=== PATIENT | male | born 1970 | race African-American/Black ===

== ENCOUNTER → 2018-08-25 | Outpatient (CLI) | payer OTHER ==
[2016-09-26 01:41] VITALS: BP 150/89
[~2018-08-25] MED LIST: CYCL10TA2 PO; NAPR-695 PO
--- NOTE | 2018-08-25 17:43 | KCIC ---
EXAM: LUMBAR SPINE MIN 4V. HISTORY: Left low back pain. Fall, muscle spasms. COMPARISON: None. FINDINGS: Alignment is normal. No fractures are identified. Intervertebral disc heights are maintained. There are mild aortoiliac atherosclerotic calcifications. IMPRESSION: 1. No fracture or malalignment. Electronically signed by: Johan Shaikh MD (08/25/2018 5:40 PM) [facility]
== END | disposition home or self-care (01) ==
LOC: KCIC 12:28
PROVIDERS: ATTEND Physician Assistant Medical
DX: M54.5 Low back pain (principal); I70.0 Atherosclerosis of aorta
CPT/HCPCS: 72110

== ENCOUNTER → 2018-09-29 | Outpatient (CLI) | payer OTHER ==
[2016-09-26 01:41] VITALS: BP 150/89
--- NOTE | 2018-09-29 20:34 | RAD ---
Limited left groin ultrasound dated 09/29/2018. No comparison available. Clinical data indication: Palpable lump. Evaluate for hernia. Findings Limited evaluation of the greater saphenous vein and left common femoral vein and superficial femoral artery show patent flow. There are multiple enlarged lymph nodes at the left groin, largest of which measures about 10 mm short axis. At the area of palpable abnormality in the proximal medial thigh, there is a small complex hypoechoic nodule that measures 1.6 x 1.3 x 1.7 cm. No internal vascularity. IMPRESSION: 1. Enlarged lymph nodes at the left groin, nonspecific. Consider infectious, inflammatory or neoplastic etiology. 2. There is an additional complex cystic nodule at the proximal medial thigh that correlates with the palpable lump. This is indeterminate could represent a liquefying hematoma or necrotic lymph node or other cystic mass. Correlate clinically. Electronically signed by: Caden Varela MD (09/29/2018 8:30 PM) [facility]
== END | disposition home or self-care (01) ==
LOC: US 17:07
PROVIDERS: ATTEND Family Medicine
DX: R19.09 Other intra-abdominal and pelvic swelling, mass and lump (principal); R22.42 Localized swelling, mass and lump, left lower limb
CPT/HCPCS: 76881

== ENCOUNTER 2021-01-15 04:07 | Observation (INO) | payer OTHER ==
[~2021-01-15] VITALS: Ht 180.3 cm; Wt 100.6 kg
[~2021-01-15 04:07] MED LIST changes: +AMLO-186 PO; +ASPI-886 PO; +ATOR20TA58 PO; +CLOP75TA PO; +GABA300C18 PO; +HYDR-2765 PO; +INSU100V8 SQ; +LISI-130 PO; +METF500T16 PO
--- NOTE | 2021-01-15 04:44 | PHYS DOC ---
Past Medical History Past Medical History: Diabetes-Type II, Hypertension Past Surgical History: No Surgical History Smoking Status: Current Some Day Smoker Alcohol Use: Occasionally Drug Use: Marijuana General Adult EDM: Chief Complaint: HEARTBURN/GI DISTRESS HPI: HPI: Patient is a 50 year old male with a PMH of HTN and diabetes presents today for epigastric pain. He states that on Saturday he was started on Eravacycline through a PICC line to prevent the infection in his left toe from progressing. He states that he had no problems until yesterday when he started sweating excessively, getting chills intermittently, became nauseous, and started having diarrhea. He states he did not take his temperature but felt hot and cold on and off. He states he has had 5x diarrhea a day, states they are green, denies blood or dark black stool. He states that with this he is having a sensation of "hot lava in the middle of his chest". He states this sensation is worse when he lays flat. Nothing makes this sensation go away, denies radiation. He states he feels like this sensation would be better if he could vomit but he has just retched a few times. He denies headache, nasal congestion, sore throat, cough, chest pain, shortness of breath, abdominal pain, numbness or tingling, and weakness. Review of Systems: Review of Systems: Constitutional: Positive subjective fever and chills. [] Eyes: Denies change in visual acuity. [] HENT: Denies nasal congestion or sore throat. [] Respiratory: Denies cough or shortness of breath. [] Cardiovascular: Denies chest pain or edema. [] GI: Positive nausea and diarrhea Denies abdominal pain, vomiting, bloody stools [] : Denies dysuria. [] Musculoskeletal: Denies back pain or joint pain. [] Integument: Denies rash. [] Neurologic: Denies headache, focal weakness or sensory changes. [] Endocrine: Denies polyuria or polydipsia. [] Lymphatic: Denies swollen glands. [] Psychiatric: Denies depression or anxiety. [] Heart Score: HEART Score for Chest Pain: HEART Score for Chest Pain Response (Comments) Value History Moderately Suspicious 1 Age >45 - < 65 1 Risk Factors 1 or 2 Risk Factors 1 Troponin < Normal Limit 0 Total 3 Risk Factors: Risk Factors: DM, Current or recent (<one month) smoker, HTN, HLP, family history of CAD, obesity. Risk Scores: Score 0 - 3: 2.5% MACE over next 6 weeks - Discharge Home Score 4 - 6: 20.3% MACE over next 6 weeks - Admit for Clinical Observation Score 7 - 10: 72.7% MACE over next 6 weeks - Early Invasive Strategies Allergies: Allergies: Allergies Coded Allergies Type Severity Reaction Last Updated Verified No Known Drug Allergies 09/26/16 No Physical Exam: PE: Constitutional: Well developed, well nourished, no acute distress, non-toxic appearance. [] HENT: Normocephalic, atraumatic, bilateral external ears normal, oropharynx moist, no oral exudates, nose normal. [] Eyes: PERRLA, EOMI, conjunctiva normal, no discharge. [] Neck: Normal range of motion, no tenderness, supple, no stridor. [] Cardiovascular:Heart rate regular rhythm, no murmur [] Lungs & Thorax: Expiratory wheeze bilaterally [] Abdomen: Bowel sounds normal, soft, no tenderness, no masses, no pulsatile masses. [] Skin: Warm, dry, no erythema, no rash. [] Back: No tenderness, no CVA tenderness. [] Extremities: No tenderness, no cyanosis, no clubbing, ROM intact, no edema. [] Neurologic: Alert and oriented X 3, normal motor function, normal sensory function, no focal deficits noted. [] Psychologic: Affect normal, judgement normal, mood normal. [] EKG: EKG: EKG performed at 511 heart rate [address] elevation no ST depression no acute SC [] Radiology/Procedures: Radiology/Procedures: [] Impression: FINDINGS: A frontal view of the chest is obtained. A left arm PICC line has its tip in the superior vena cava. The left hemidiaphragm is mildly elevated with mild left basilar atelectasis. There is no pneumothorax or pleural effusion. The heart is not enlarged. IMPRESSION: 1. Mild left basilar atelectasis. Electronically signed by: Johan Shaikh MD (01/15/2021 5:26 AM) [facility] Course & Med Decision Making: Course & Med Decision Making Pertinent Labs and Imaging studies reviewed. (See chart for details) [] Patient was evaluated for chief complaint. Work-up consisted of laboratory analysis radiologic imaging and EKG. Results reviewed and discussed with patient. EKG chest x-ray within normal limits. Patient was found to have a sodium of 129. His BUN was 29 creatinine 1.1. Initial treatment for patient's epigastric pain included GI cocktail. Patient initially had relief but not complete resolution of discomfort. Patient's blood pressurE was noted to be greater than 220 systolic. He was treated with 20 mg labetalol. Posttreatment blood pressure mildly improved to 210 systolic. Patient had a large episode of emesis. Nausea vomiting was treated with Zofran. Return of patients epigastric pain was treated with pepcid. Patient admitted to Dr Mitchell-- Discussed patient @ 550hrs. Repeat blood pressure 0600hrs-- 200/108. Venus Disclaimer: Venus Disclaimer: This electronic medical record was generated, in whole or in part, using a voice recognition dictation system. Departure Departure Impression: Primary Impression: Epigastric pain Additional Impressions: Nausea & vomiting Diarrhea Hypertension Disposition: 09 ADMITTED INPT THIS HOSP Condition: STABLE Referrals: YOLANDA WEBER MD (PCP) EVELIA MORELAND DO Jan 15, 2021 04:44
[2021-01-15] MEDS ORDERED: LIDO:MAALOX 1:1 20 ML SINGLE DOSE. PO PRN (05:00)
[2021-01-15] MEDS ORDERED: ONDANSETRON ODT 4 MG TAB.RAPDIS. PO ONE (05:15)
--- NOTE | 2021-01-15 05:29 | RAD ---
EXAM: CHEST ONE VIEW. HISTORY: Epigastric pain. COMPARISON: None. FINDINGS: A frontal view of the chest is obtained. A left arm PICC line has its tip in the superior v brionna cava. The left hemidiaphragm is mildly elevated with mild left basilar atelectasis. There is no pneumothora x or pleural effusion. The heart is not enlarged. IMPRESSION: 1. Mild left basilar atelectasis. Electronically signed by: Johan Shaikh MD (01/15/2021 5:26 AM) [facility]
[2021-01-15 05:30] LABS: BASO % 1 % (0-3); EOS % 0 % (0-3); HEMATOCRIT 35.5 % (39.0-53.0); HEMOGLOBIN 11.8 g/dL (13.0-17.5); LYMPH # 1.6 x10^3/uL (1.0-4.8); LYMPH % 23 % (24-48); MEAN CORPUSCULAR HEMOGLOBIN 29 pg (25-35); MEAN CORPUSCULAR HGB CONC 33 g/dL (31-37); MEAN CORPUSCULAR VOLUME 88 fL (79-100); MONO # 0.5 x10^3/uL (0.0-1.1); MONO % 7 % (0-9); NEUT # 4.8 x10^3/uL (1.8-7.7); NEUT % 70 % (31-73); PLATELET COUNT 222 x10^3/uL (140-400); RED BLOOD COUNT 4.05 x10^6/uL (4.30-5.70); RED CELL DISTRIBUTION WIDTH 14.4 % (11.5-14.5); WHITE BLOOD COUNT 6.9 x10^3/uL (4.0-11.0)
[2021-01-15] MEDS ORDERED: LABETALOL 20 MG/4 ML DISP.SYRIN. IVP ONE ×2 (05:30→06:30)
[2021-01-15 05:41] LABS: CALCIUM 9.3 mg/dL (8.5-10.1); CREATININE 1.1 mg/dL (0.7-1.3); GFR 85.1
[2021-01-15 05:47] LABS: ALBUMIN 3.4 g/dL (3.4-5.0); ALBUMIN/GLOBULIN RATIO 0.7 (1.0-1.7); TOTAL BILIRUBIN 0.4 mg/dL (0.2-1.0); TOTAL PROTEIN 8.4 g/dL (6.4-8.2)
--- NOTE | 2021-01-15 05:51 | EKG ---
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
[2021-01-15 05:54] LABS: POTASSIUM 3.9 mmol/L (3.5-5.1)
[2021-01-15] MEDS ORDERED: FAMOTIDINE 20 MG/2 ML VIAL IVP ONE (06:00)
[2021-01-15] MEDS ORDERED: ONDANSETRON PF 4 MG/2 ML VIAL. IV PRN ×2 (06:00→14:15)
[2021-01-15] MEDS ORDERED: ONDANSETRON PF 4 MG/2 ML VIAL. IVP ONE (06:00)
[2021-01-15] MEDS ORDERED: DEXTROSE 50% 25 GM / 50ML DISP.SYRIN. IV PRN (08:30)
[2021-01-15] MEDS ORDERED: amLODIPine BESYLATE 5 MG TABLET PO SCH (09:00)
[2021-01-15] MEDS: VANCOMYCIN 125 MG/2.5 ML ORAL SOLUTION. PO SCH ×5 (09:00→20:32)
[2021-01-15 09:15] VITALS: BP 176/99
--- NOTE | 2021-01-15 09:19 | PDOC ---
Provider Note Date of Service: DATE: 01/15/21 TIME: 09:18 Provider Note dictated, susp c diff, will add vanco after stool obtained, add protonix, bactroban, no antibx for now- hold lantus until glucose higher again Justifications for Admission Other Justification JO ANN HAYNES MD Jan 15, 2021 09:19
[2021-01-15] MEDS: MUPIROCIN 2 % NASAL OINTMENT 22GM TUBE. NS SCH ×2 (09:47→20:41)
[2021-01-15] MEDS: POTASSIUM CL 20MEQ D5-0.45NACL 1,000 ML IV SCH ×2 (09:51→17:18)
[2021-01-15] MEDS: PANTOPRAZOLE IV PUSH 40 MG VIAL. IVP SCH (09:52)
[2021-01-15] MEDS: GABAPENTIN 300 MG CAPSULE. PO SCH ×3 (09:57→20:35)
[2021-01-15] MEDS: ASPIRIN ENTERIC COATED 81 MG TABLET.DR. PO SCH (09:58)
[2021-01-15] MEDS: CLOPIDOGREL BISULFATE 75 MG TABLET PO SCH (09:58)
[2021-01-15] MEDS: LISINOPRIL 20 MG TABLET PO SCH (09:58)
[2021-01-15 10:48] VITALS: BP 176/98
--- NOTE | 2021-01-15 11:05 | HP ---
ADMIT DATE: 01/15/2021 CHIEF COMPLAINT: Nausea, vomiting, diarrhea ____. HISTORY OF PRESENT ILLNESS: The patient with 3-4 days of progressive nausea, vomiting, diarrhea nonbloody in nature, epigastric pain and fatigue. He is on IV antibiotics for infected left great toe, which was debrided out on plantar surface and has multiple organisms per culture. He is also having a fair amount of heartburn and does not take antacid-type medicines at home. Laboratory values in the ER were unremarkable. C. diff toxin is pending at this time. PAST HISTORY: He is a poorly controlled diabetic that recently started on Lantus and had very good blood sugars at home to ____ being low blood sugars. He also has hypertension and takes medicine for this and history of mild renal insufficiency that is improved with diabetic control. No other serious medical problems. ALLERGIES: No drug allergies are known. SOCIAL HISTORY: Nonsmoker, employed, , nondrinker. FAMILY HISTORY: Unremarkable. REVIEW OF SYSTEMS: No other complaints. OBJECTIVE: ENT: All within normal limits. NECK: No masses, nodes or bruits. LUNGS: Clear. CARDIOVASCULAR: Regular rate. No tachycardia. ABDOMEN: Soft, benign. Mildly tender in the epigastrium. No guarding or surgical findings. EXTREMITIES: The plantar base of the left great toe shows surgical debridement with excellent clean-looking base, no bone extruding, no purulence is obtained. Pulses are diminished in the foot, but are present, whereas they were absent before. NEUROLOGIC: Physiologic. ASSESSMENT: Abdominal pain, nausea, vomiting, diarrhea and heartburn. Suspect Clostridium difficile colitis as a likely possibility. Certainly could have some acid reflux as well. Insulin-induced hypoglycemia regarding his new use of Lantus. PLAN: As ordered. JO ANN HAYNES MD DR: SHIRIN/chika JOB#: [id number] / [id number]
[2021-01-15] MEDS: INSULIN LISPRO 300 UNITS/3 ML VIAL. SQ SCH ×2 (11:32→16:44)
[2021-01-15] MEDS ORDERED: CALCIUM CARBONATE 500 MG TAB.CHEW PO PRN (14:15)
[2021-01-15] MEDS: amLODIPine BESYLATE 5 MG TABLET PO ONE ×2 (14:30→14:33)
[2021-01-15] MEDS: MORPHINE SULFATE 4 MG/ML VIAL. IV PRN ×2 (14:33→23:24)
[2021-01-15 14:50] VITALS: BP 182/106
[2021-01-15 19:00] VITALS: BP 157/87
--- NOTE | 2021-01-15 20:33 | NUR ---
2100 dose PO Vanco non-administered because stool specimen has not been obtained yet.
[2021-01-15] MEDS ORDERED: INSULIN GLARGINE SYRINGE. SQ SCH (21:00)
[2021-01-15 23:09] VITALS: BP 142/75
[2021-01-16] MEDS: POTASSIUM CL 20MEQ D5-0.45NACL 1,000 ML IV SCH ×2 (00:02→09:57)
[2021-01-16 03:41] VITALS: BP 127/84
[2021-01-16] MEDS: PANTOPRAZOLE IV PUSH 40 MG VIAL. IVP SCH (05:20)
[2021-01-16 07:00] VITALS: BP 148/66
[2021-01-16] MEDS: amLODIPine BESYLATE 10 MG TABLET PO SCH (08:35)
[2021-01-16] MEDS: GABAPENTIN 300 MG CAPSULE. PO SCH ×3 (08:35→19:33)
[2021-01-16] MEDS: LISINOPRIL 20 MG TABLET PO SCH (08:36)
[2021-01-16] MEDS: ASPIRIN ENTERIC COATED 81 MG TABLET.DR. PO SCH (08:36)
[2021-01-16] MEDS: MUPIROCIN 2 % NASAL OINTMENT 22GM TUBE. NS SCH ×2 (08:36→19:41)
--- NOTE | 2021-01-16 08:49 | PDOC ---
Provider Note Date of Service: DATE: 01/16/21 TIME: 08:47 Provider Note vss, bp better , glucose ok- no more diarrhea prior to vanco- c diff pending- will dc vanco pending c diff, adv diet, resume lower dose lantus for now Justifications for Admission Other Justification JO ANN HAYNES MD Jan 16, 2021 08:49
[2021-01-16] MEDS ORDERED: PANTOPRAZOLE 40 MG TABLET.DR. PO SCH (09:30)
[2021-01-16] MEDS: CLOPIDOGREL BISULFATE 75 MG TABLET PO SCH (09:47)
[2021-01-16] MEDS: HYDROcodone/APAP 7.5/325MG 1 TAB TABLET PO PRN ×2 (09:55→19:33)
[2021-01-16] MEDS ORDERED: INSULIN GLARGINE SYRINGE. SQ SCH (10:00)
[2021-01-16 11:00] VITALS: BP 148/80
--- NOTE | 2021-01-16 14:30 | NUR ---
Wound Care Wound Type/Assessment: patient seen per wound care consult. see wound assessment. patient has a left great toe dfu, the wound was cleaned, and redressed with recommended of Medihoney with Xeroform gauze with a foam and tape, change every 2-3 days. Treatment Recommendations/Plan: Recommendations of Medihoney with Xeroform gauze with a foam dressing and tape, change every 2-3 days. Offloading surface/device: Patient has an off-loading shoe Discharge Recommendations for dressings: Patient to f/u in the wound clinic. wound care will continue to f/u for changes.
[2021-01-16 15:00] VITALS: BP 149/60
--- NOTE | 2021-01-16 15:08 | NUR ---
SS following for discharge planning. SS reviewed pt chart and discussed with pt RN. Pt is from home and is currently on room air. Discharge plan is to home when medically ready. SS will continue to follow for discharge planning.
[2021-01-16 19:00] VITALS: BP 144/80
[2021-01-16 23:00] VITALS: BP 161/82
[2021-01-17] MEDS: POTASSIUM CL 20MEQ D5-0.45NACL 1,000 ML IV SCH (00:14)
--- NOTE | 2021-01-17 00:16 | NUR ---
Patient refusing IVF.
[2021-01-17] MEDS ORDERED: INSULIN GLARGINE SYRINGE. SQ ONE (00:30)
[2021-01-17] MEDS: HYDROcodone/APAP 7.5/325MG 1 TAB TABLET PO PRN ×2 (01:07→08:38)
[2021-01-17 02:48] VITALS: BP 120/82
[2021-01-17 07:00] VITALS: BP 163/81
--- NOTE | 2021-01-17 08:22 | NUR ---
SS following up with discharge planning. SS reviewed pt chart and discussed with pt RN. Pt is currently on room air. Discharge order on the chart for home with self care.
--- NOTE | 2021-01-17 08:26 | PDOC ---
Provider Note Date of Service: DATE: 01/17/21 TIME: 08:25 Provider Note [id number] Justifications for Admission Other Justification JO ANN HAYNES MD Jan 17, 2021 08:26
[2021-01-17] MEDS: CLOPIDOGREL BISULFATE 75 MG TABLET PO SCH (08:36)
[2021-01-17] MEDS: GABAPENTIN 300 MG CAPSULE. PO SCH (08:37)
[2021-01-17] MEDS: ASPIRIN ENTERIC COATED 81 MG TABLET.DR. PO SCH (08:37)
[2021-01-17] MEDS: LISINOPRIL 20 MG TABLET PO SCH (08:37)
[2021-01-17] MEDS: amLODIPine BESYLATE 10 MG TABLET PO SCH (08:39)
--- NOTE | 2021-01-17 09:22 | DS ---
DATE OF DISCHARGE: 01/17/2021 HOSPITAL SUMMARY: A 50-year-old black male with recent gangrene and vascular stenting of the left leg, with poorly controlled diabetes, went home on IV antibiotics for the cellulitis of the great toe. He developed nausea, vomiting, heartburn and diarrhea prior to coming back in the hospital, raising the possibility of C. diff toxin among other things. Laboratory study showed a normal CBC and chemistry profile, and blood sugars were unremarkable as well. C. diff toxin was negative. Chest x-ray was clear. He was treated with IV Protonix for his heartburn and vancomycin was orally given until his C. diff toxin result proved negative and that drug was stopped. His diarrhea resolved and the heartburn seems to be benefited by the PPI use, so he will be discharged and followed as an outpatient. He had stopped his insulin at home due to low blood sugar, so that was resumed as Lantus at 20 units, down from 32 he was using, and blood sugars have been better since then. Wound care saw him and will continue the Medihoney dressings on the great toe, but appears to be healing very well. FINAL DIAGNOSES: 1. Acute nausea, vomiting and diarrhea, likely secondary to untreated gastroesophageal acid reflux. 2. Cellulitis of the left great toe, improving. OPERATIONS, PROCEDURES, COMPLICATIONS, CONSULTATIONS: None. DISPOSITION: He will resume Lantus at 20 units daily and we will titrate from there based on the result. The rest of home meds continued including metformin and amlodipine and we will add omeprazole 40 mg daily as well. Office followup in 1 week. PROGNOSIS: Good. JO ANN HAYNES MD DR: SHIRIN/chika JOB#: [id number] / [id number]
[2021-01-17] MEDS ORDERED: INSULIN GLARGINE SYRINGE. SQ SCH (10:00)
[2021-01-17 10:16] VITALS: BP 140/70
--- NOTE | 2021-01-17 11:00 | NUR ---
Discharge Note: FRED BURNS Discharge instructions and discharge home medications reviewed with Patient and a copy given. All questions have been answered and understanding verbalized. The following instructions and handouts were given: gastroesophageal refulux disorder Patient discharged to home with self care via wheelchair.
== END 2021-01-17 11:00 | disposition home or self-care (01) ==
LOC: ER 04:07 → 2 NORTH 06:24
PROVIDERS: ADMIT Family Medicine; ATTEND Family Medicine
DX: R10.13 Epigastric pain (principal); R11.2 Nausea with vomiting, unspecified; R19.7 Diarrhea, unspecified; E11.649 Type 2 diabetes mellitus with hypoglycemia without coma; I10 Essential (primary) hypertension; J98.11 Atelectasis; L03.032 Cellulitis of left toe; K21.9 Gastro-esophageal reflux disease without esophagitis; T38.3X5A Adverse effect of insulin and oral hypoglycemic [antidiabetic] drugs, initial encounter; F17.200 Nicotine dependence, unspecified, uncomplicated; Z79.899 Other long term (current) drug therapy; Z79.4 Long term (current) use of insulin
CPT/HCPCS: 36415; 71045; 80053; 82962; 84484; 85025; 87493; 93005; 96361; 96372; 96374; 96375; 96376; 99285; C9113; G0378; J1815; J2270; J2405; J3480; J3490; G0379

== ENCOUNTER 2021-02-16 22:34 | Inpatient (IN) | payer OTHER ==
[~2021-02-16] VITALS: Ht 180.3 cm; Wt 105.5 kg
--- NOTE | 2021-02-17 00:12 | ED.ADGEN ---
Past Medical History Past Medical History: Diabetes-Type II, High Cholesterol, Hypertension Past Surgical History: No Surgical History Smoking Status: Former Smoker Alcohol Use: Occasionally Drug Use: Marijuana General Adult EDM: Chief Complaint: ABDOMINAL PAIN HPI: HPI: Patient is a 50-year-old male who presents to the emergency room complaining of epigastric abdominal pain. This feels exactly like the same pain he had 5 weeks ago and was admitted for. It was thought that this pain was secondary to reflux. He states that he was doing well until he ate a piece of pizza this evening. He then started having the severe pain. He did have an episode of vomiting after he got here. He denies any other associated symptoms. Review of Systems: Review of Systems: Complete ROS is negative unless otherwise documented in HPI Current Medications: Current Medications Medications (Trade) Dose Ordered Sig/Reny Start Time Stop Time Status Last Admin Dose Admin Info (CONTRAST GIVEN -- Rx MONITORING) 1 each PRN DAILY PRN 02/17/21 02:00 02/19/21 01:59 Iohexol (Omnipaque 240 Mg/ml) 30 ml 1X ONCE 02/17/21 02:00 02/17/21 02:01 DC 02/17/21 03:00 30 ML Iohexol (Omnipaque 300 Mg/ml) 75 ml 1X ONCE 02/17/21 02:00 02/17/21 02:01 DC 02/17/21 03:00 75 ML Morphine Sulfate (Morphine Sulfate) 5 mg 1X ONCE 02/17/21 01:15 02/17/21 01:16 DC 02/17/21 01:31 5 MG Multi-Ingredient Mouthwash/Gargle (Gi Cocktail) 20 ml 1X ONCE 02/17/21 00:15 02/17/21 00:16 DC 02/17/21 00:11 20 ML Ondansetron HCl (Zofran) 4 mg 1X ONCE 02/17/21 01:15 02/17/21 01:16 DC 02/17/21 01:26 4 MG Allergies: Allergies: Allergies Coded Allergies Type Severity Reaction Last Updated Verified No Known Drug Allergies 09/26/16 No Physical Exam: PE: General: Awake, alert, NAD. Well Nourished, well hydrated. Cooperative HEENT: Atraumatic, EOMI, PERRL, airway patent, moist oral mucosa Neck: Supple, trachea midline Respiratory: CTA bilaterally, normal effort, no wheezing/crackles CV: RRR, no murmur, cap refill <2 GI: Soft, nondistended, nontender, no masses MSK: No obvious deformities Skin: Warm, dry, intact Neuro: A&O x3, speech NL, sensory and motor grossly intact, no focal deficits Psych: Normal affect, normal mood, not suicidal or homicidal Current Patient Data: Labs: Laboratory Tests Test 02/16/21 23:04 02/16/21 23:30 Urine Collection Type Unknown Urine Color Yellow Urine Clarity Clear Urine pH 5.5 (<5.0-8.0) Urine Specific [place] 1.020 (1.000-1.030) Urine Protein Negative mg/dL (NEG-TRACE) Urine Glucose (UA) >=1000 mg/dL (NEG) Urine Ketones (Stick) Negative mg/dL (NEG) Urine Blood Negative (NEG) Urine Nitrite Negative (NEG) Urine Bilirubin Negative (NEG) Urine Urobilinogen Dipstick 0.2 mg/dL (0.2 mg/dL) Urine Leukocyte Esterase Negative (NEG) Urine RBC Rare /HPF (0-2) Urine WBC Rare /HPF (0-4) Urine Squamous Epithelial Cells Occ /LPF Urine Bacteria 0 /HPF (0-FEW) Urine Mucus Slight /LPF White Blood Count 4.8 x10^3/uL (4.0-11.0) Red Blood Count 2.62 x10^6/uL (4.30-5.70) L Hemoglobin 7.6 g/dL (13.0-17.5) L Hematocrit 23.1 % (39.0-53.0) L Mean Corpuscular Volume 88 fL (79-100) Mean Corpuscular Hemoglobin 29 pg (25-35) Mean Corpuscular Hemoglobin Concent 33 g/dL (31-37) Red Cell Distribution Width 16.4 % (11.5-14.5) H Platelet Count 131 x10^3/uL (140-400) L Neutrophils (%) (Auto) 52 % (31-73) Lymphocytes (%) (Auto) 37 % (24-48) Monocytes (%) (Auto) 8 % (0-9) Eosinophils (%) (Auto) 1 % (0-3) Basophils (%) (Auto) 1 % (0-3) Neutrophils # (Auto) 2.5 x10^3/uL (1.8-7.7) Lymphocytes # (Auto) 1.8 x10^3/uL (1.0-4.8) Monocytes # (Auto) 0.4 x10^3/uL (0.0-1.1) Eosinophils # (Auto) 0.1 x10^3/uL (0.0-0.7) Basophils # (Auto) 0.1 x10^3/uL (0.0-0.2) Sodium Level 135 mmol/L (136-145) L Potassium Level 4.4 mmol/L (3.5-5.1) Chloride Level 106 mmol/L (98-107) Carbon Dioxide Level 23 mmol/L (21-32) Anion Gap 6 (6-14) Blood Urea Nitrogen 24 mg/dL (8-26) Creatinine 1.2 mg/dL (0.7-1.3) Estimated GFR (Cockcroft-Gault) 76.9 BUN/Creatinine Ratio 20 (6-20) Glucose Level 269 mg/dL (70-99) H Calcium Level 7.6 mg/dL (8.5-10.1) L Total Bilirubin 0.4 mg/dL (0.2-1.0) Aspartate Amino Transferase (AST) 39 U/L (15-37) H Alanine Aminotransferase (ALT) 73 U/L (16-63) H Alkaline Phosphatase 164 U/L (46-116) H Total Protein 6.7 g/dL (6.4-8.2) Albumin 2.7 g/dL (3.4-5.0) L Albumin/Globulin Ratio 0.7 (1.0-1.7) L Lipase 901 U/L (73-393) H Laboratory Tests 02/16/21 23:30 Laboratory Tests 02/16/21 23:30 Vital Signs: Vital Signs Date Time Temp Pulse Resp B/P (MAP) Pulse Ox O2 Delivery O2 Flow Rate FiO2 02/17/21 01:37 85 15 177/82 (113) 100 Room Air 02/16/21 23:05 97.9 97.9 EKG: EKG: [] Heart Score: C/O Chest Pain: N/A Risk Factors: Risk Factors: DM, Current or recent (<one month) smoker, HTN, HLP, family history of CAD, obesity. Risk Scores: Score 0 - 3: 2.5% MACE over next 6 weeks - Discharge Home Score 4 - 6: 20.3% MACE over next 6 weeks - Admit for Clinical Observation Score 7 - 10: 72.7% MACE over next 6 weeks - Early Invasive Strategies Radiology/Procedures: Radiology/Procedures: [] Course & Med Decision Making: Course & Med Decision Making Pertinent Labs and Imaging studies reviewed. (See chart for details) Patient is a 50-year-old well-appearing male who presents to the emergency room complaining of epigastric abdominal pain. Patient has had similar pain in the past. It was thought to likely be due to gastritis or reflux. Patient was given a GI cocktail and morphine. Abdominal labs will be done to rule out other causes of epigastric abdominal pain. Patient has an elevated lipase and elevated liver enzymes. CT abdomen pelvis was done and shows mild pancreatitis. Patient also has significant anemia. This is significantly different than prior. A GI consult will be placed. Patient denies any kind of rectal bleeding. Work up was reviewed and was remarkable for elevated lipase, elevated liver enzymes, new anemia. At this time, patient would benefit from further work up and management. Patient is not stable for discharge at this time. Results, vitals, interventions, and plan was discussed with the patient. Patient was given opportunity to ask any questions and are in agreement with plan for admission. Patient was discussed with admitting physician and bridge admission orders were placed. Further care will be managed by inpatient team. Venus Disclaimer: Venus Disclaimer: This electronic medical record was generated, in whole or in part, using a voice recognition dictation system. Departure Departure Impression: Primary Impression: Pancreatitis Additional Impressions: Anemia Elevated liver enzymes Disposition: ADMITTED INPT THIS HOSP Condition: IMPROVED Referrals: YOLANDA WEBER MD (PCP) Problem Qualifiers CHRISTIAN BURNS MD Feb 17, 2021 00:12
[2021-02-17 00:14] LABS: BASO # 0.1 x10^3/uL (0.0-0.2); BASO % 1 % (0-3); EOS # 0.1 x10^3/uL (0.0-0.7); EOS % 1 % (0-3); HEMATOCRIT 23.1 % (39.0-53.0); HEMOGLOBIN 7.6 g/dL (13.0-17.5); LYMPH # 1.8 x10^3/uL (1.0-4.8); LYMPH % 37 % (24-48); MEAN CORPUSCULAR HEMOGLOBIN 29 pg (25-35); MEAN CORPUSCULAR HGB CONC 33 g/dL (31-37); MEAN CORPUSCULAR VOLUME 88 fL (79-100); MONO # 0.4 x10^3/uL (0.0-1.1); MONO % 8 % (0-9); NEUT # 2.5 x10^3/uL (1.8-7.7); NEUT % 52 % (31-73); PLATELET COUNT 131 x10^3/uL (140-400); RED BLOOD COUNT 2.62 x10^6/uL (4.30-5.70); RED CELL DISTRIBUTION WIDTH 16.4 % (11.5-14.5); WHITE BLOOD COUNT 4.8 x10^3/uL (4.0-11.0)
[2021-02-17] MEDS ORDERED: LIDO:MAALOX 1:1 20 ML SINGLE DOSE. SWSW ONE (00:15)
[2021-02-17] MEDS ORDERED: MORPHINE SULFATE 10 MG/ML VIAL. IV ONE ×3 (00:15→04:15)
[2021-02-17 00:18] LABS: BILIRUBIN,URINE NEGATIVE (NEG); CLARITY,URINE CLEAR; COLOR,URINE YELLOW; NITRITE,URINE NEGATIVE (NEG); PH,URINE 5.5 (<5.0-8.0); PROTEIN,URINE NEGATIVE (NEG-TRACE); UROBILINOGEN,URINE 0.2 mg/dL (0.2 mg/dL)
[2021-02-17 00:24] LABS: CALCIUM 7.6 mg/dL (8.5-10.1); CREATININE 1.2 mg/dL (0.7-1.3); GFR 76.9; POTASSIUM 4.4 mmol/L (3.5-5.1)
[2021-02-17 00:26] LABS: BACTERIA,URINE 0 /HPF (0-FEW); RBC,URINE RARE /HPF (0-2); WBC,URINE RARE /HPF (0-4)
[2021-02-17 00:30] LABS: ALBUMIN 2.7 g/dL (3.4-5.0); ALBUMIN/GLOBULIN RATIO 0.7 (1.0-1.7); TOTAL BILIRUBIN 0.4 mg/dL (0.2-1.0); TOTAL PROTEIN 6.7 g/dL (6.4-8.2)
[2021-02-17] MEDS ORDERED: ONDANSETRON PF 4 MG/2 ML VIAL. IVP ONE (01:15)
[2021-02-17] MEDS ORDERED: IOHEXOL 300 MG/ML 100ML VIAL. IV ONE (02:00)
[2021-02-17] MEDS ORDERED: CONTRAST GIVEN. MC PRN (02:00)
[2021-02-17] MEDS ORDERED: IOHEXOL 240 MG/ML 50ML VIAL. PO ONE (02:00)
--- NOTE | 2021-02-17 03:39 | RAD ---
PQRS Compliance Statement: One or more of the following individualized dose reduction techniques were utilized for this examinat ion: 1. Automated exposure control 2. Adjustment of the mA and/or kV according to patient size 3. Use of iterative reconstruction technique CT ABDOMEN+PELVIS W Clinical Indication: Reason: epigastric abd pain, elevated LFTS/lipase Comparison: None. Technique: Helical CT imaging of the abdomen and pelvis is performed after 75 cc of Omnipaque 300 IV contrast. Oral contrast also administered. Findings: There is mild bilateral dependent atelectasis. The cardiac size is normal. The liver, gallbladder, spleen, and adrenal glands are normal. The abdominal aorta is normal caliber, mild atherosclerotic calcification. There is mild peripancreatic inflammation involving the pancreas head and uncinate process. No eviden ce of necrosis. No pancreas pseudocyst is seen. Small right upper pole renal cyst does not require follow-up. The kidneys enhance symmetrically, no h ydronephrosis. There is no obvious abnormality of the stomach. There is no small bowel obstruction. There is descend ing colon diverticulosis. No colon wall thickening is seen. The appendix is normal. No abdominal kyle opathy or free fluid. The urinary bladder is normal. The prostate and seminal vesicles are normal. No pelvic free fluid is seen. There is a stent of the left external iliac artery. Partially seen stent of the left superficia l femoral artery. There are probably reactive inferior endplate changes of T11 anteriorly. No acute bone abnormality. IMPRESSION: 1. There is mild acute pancreatitis of the pancreas head. 2. Descending colon diverticulosis. Electronically signed by: Neo Benedict MD (02/17/2021 3:36 AM) [facility]
--- NOTE | 2021-02-17 05:30 | NUR ---
Patient, Sammy Rolle, admitted to room 667, plan of care discussed, he has a wound vac from home, along with antibiotics and flushes from home (he was administering iv antibiotics himself), discussed taking off wound dressing and wound vac..patient anxious, stating, "you're gonna put it back on...THis medical underwriter informs that will leave on until wound care staff sees (He does see Dr Nathan's office for wound follow up appointments).
[2021-02-17] MEDS ORDERED: MORPHINE SULFATE 10 MG/ML VIAL. IV PRN (06:00)
[2021-02-17] MEDS: IV NORMAL SALINE 1000ML BAG 1,000 ML IV SCH ×3 (06:05→20:27)
--- NOTE | 2021-02-17 06:20 | NUR ---
Patient given morphine, he states that he doesn't feel the 'heat' like before, informed that it was administered split into two ports, to monitor...
[2021-02-17 07:00] VITALS: BP 166/81
--- NOTE | 2021-02-17 07:25 | NUR ---
Answering service notified of the routine consult for Dr Boyer, to relay message.
--- NOTE | 2021-02-17 08:18 | PDOC1 ---
H & P. DATE OF SERVICE: DATE: 02/17/21 TIME: 08:05 HPI: Mr. Rolle is a 50-year-old male with a past medical history of poorly controlled type 2 diabetes, recent gangrene and stenting for PAD in left leg, GERD, hypertension, who presented to the emergency room yesterday for epigastric pain. His labs were consistent with pancreatitis and his imaging showed mild peripancreatic inflammation of the pancreatic head. Labs were remarkable for lipase of 900, normocytic anemia with hemoglobin of 7.6, mild thrombocytopenia, mild transaminitis. He was admitted for further evaluation and management with IV medications for pain and IV fluids. ROS: Constitutional: Denies fever, fatigue, chills HEENT: Denies sore throat, vision changes Cardio: Denies chest pain, dyspnea with exertion, syncope, palpitations, edema Pulmonary: Denies shortness of breath, cough, wheezing GI: Admits nausea, vomiting, epigastric abdominal pain; denies diarrhea, constipation : Denies dysuria, frequency, urgency, incontinence Skin: Denies new lesions Neuro: Denies weakness, paresthesias PMH: As above FAMILY HX: Noncontributory SOCIAL HX: Former smoker. Denies significant alcohol use. Denies recreational drug use. SURGICAL HX: Tonsillectomy, stent placed in the left lower extremity November 2020. MEDS: Reviewed and reconciled ALLERGIES: Reviewed PE: Alert, oriented, appears to be in severe pain, moving in the bed constantly, moaning EOMI, sclera non-icteric Neck supple RRR, no murmur CTAB, no wheezes, crackles or rhonchi Soft, tender in epigastrium, ND, normal bowel sounds No edema, cyanosis. Normal capillary refill. L foot in post-op shoe, wound vac in place ASSESSMENT & PLAN: Acute pancreatitis Normocytic anemia, significant drop from 11.2 01/08 Uncontrolled type 2 diabetes Peripheral artery disease Hypertension GERD History of nicotine dependence in remission IV fluids Pain control. Morphine not working, changed to hydromorphone N.p.o. until improving then can advance to clear liquid diet with caution Repeat labs in a.m. Pt denies known melena, hematochezia. Will get FOBT, repeat CBC and iron studies to further eval. Justifications for Admission Other Justification YOLANDA WEBER MD Feb 17, 2021 08:18
[2021-02-17] MEDS ORDERED: DEXTROSE 50% 25 GM / 50ML DISP.SYRIN. IV PRN (09:00)
[2021-02-17] MEDS: HYDROmorphone 2 MG/ML VIAL IVP PRN ×5 (09:07→23:19)
--- NOTE | 2021-02-17 09:51 | NUR ---
Wound/Ostomy Care Wound Type/Assessment: Patient seen per wound care consult. See wound assessment. Patient is well known to us from the wound clinic. Patient is currently being seen in the wound clinic for a left great plantar DFU with a wound vac. Wound cleansed, assessed, measured, and pictured. Treatment Recommendations/Plan: Will continue with wound vac therapy. skin prepped and 1 piece of rosenberg foam placed to wound bed, a good seal maintained at 125mmHg continuous. Vac tracked up to left lower leg. Education provided: Patient educated regarding wound vac therapy and PU prevention. Offloading surface/device: Patient is to wear half shoe at all times if ambulating. Recommended Referrals/Tests: N/A Discharge Recommendations for dressings: Dressing change instructions left in room. No other wounds noted. Wound care will follow up on Saturday for wound vac dressing change. Bed lowered and call light in reach.
[2021-02-17] MEDS: MULTIVITAMIN with MINERAL TABLET. PO SCH (10:00)
[2021-02-17] MEDS: ONDANSETRON PF 4 MG/2 ML VIAL. IVP PRN ×2 (10:35→18:32)
[2021-02-17] MEDS: CLOPIDOGREL BISULFATE 75 MG TABLET PO SCH (10:35)
[2021-02-17] MEDS: LISINOPRIL 20 MG TABLET PO SCH (10:35)
[2021-02-17] MEDS: GABAPENTIN 300 MG CAPSULE. PO SCH ×3 (10:36→20:23)
[2021-02-17] MEDS: ASPIRIN ENTERIC COATED 81 MG TABLET.DR. PO SCH (10:36)
[2021-02-17] MEDS: amLODIPine BESYLATE 5 MG TABLET PO SCH (10:36)
[2021-02-17 11:00] VITALS: BP 176/104
--- NOTE | 2021-02-17 11:10 | PDOC2 ---
GI CONSULT Date of Service: DATE: 02/17/21 TIME: 11:10 Reason For Consult: pancreatitis, new anemia HPI: HPI: 50 y/o male evaluated in ER for mid abdominal pain ("bad") that started last night at 6:00 p.m. while eating pizza. No radiation. Associated w/ vomiting x 1. He's a bit drowsy this morning but is able to cooperate w/ interview. Labs noted Hgb 7.6, MCV 88, plt 131, bili 0.4, AST 39, ALT 73, Alk Phos 164, lipase 901. CT noted mild acute pancreatitis of the pancreas head. Has chronic anemia, Hgb lower now. H/o GERD "on a beautiful orange and blue pill" (though no PPI, H2 marianne, etc. on summary list). No dysphagia, hematemesis, chronic abd pain, diarrhea, constipation, hematochezia, melena, change in appetite, or weight loss. No previous EGD. Reports normal colonoscopy at age 48 - thinks done in [facility]. H/o diverticulitis in [place] - was admitted and given IV antibiotics. No GB, liver, pancreas, or PUD history. H/o PAD w/ LLE stent on Plavix and ASA since 12/2020. H/o DM (A1c 12 in 12/2020). Chronic pain on Naproxen x 1 year. Has wound vac for left toe ulcer. PMH: PMH: PAD s/p LLE angioplasty/stent, left toe ulcer s/p debridement, HTN, HLD, DM, depression, chronic pain, tonsillectomy FH: Family History: No pertinent hx Social History: Smoke: Quit ALCOHOL: none (tells me none) Drugs: None ROS: GEN: Denies fevers, chills, sweats HEENT: Denies blurred vision, sore throat CV: Denies chest pain RESP: Denies shortness of air, cough GI: Per HPI : Denies hematuria, dysuria ENDO: Denies weight changes NEURO: Denies confusion, dizziness MSK: chronic pain SKIN: left toe wound Vitals: Vitals: Vital Signs Date Time Temp Pulse Resp B/P (MAP) Pulse Ox O2 Delivery O2 Flow Rate FiO2 02/17/21 10:36 83 166/81 02/17/21 10:00 Room Air 02/17/21 07:00 97.6 22 96 97.6 Labs: Labs: Laboratory Tests Test 02/16/21 23:04 02/16/21 23:30 02/17/21 07:25 02/17/21 10:24 Urine Collection Type Unknown Urine Color Yellow Urine Clarity Clear Urine pH 5.5 (<5.0-8.0) Urine Specific [place] 1.020 (1.000-1.030) Urine Protein Negative mg/dL (NEG-TRACE) Urine Glucose (UA) >=1000 mg/dL (NEG) Urine Ketones (Stick) Negative mg/dL (NEG) Urine Blood Negative (NEG) Urine Nitrite Negative (NEG) Urine Bilirubin Negative (NEG) Urine Urobilinogen Dipstick 0.2 mg/dL (0.2 mg/dL) Urine Leukocyte Esterase Negative (NEG) Urine RBC Rare /HPF (0-2) Urine WBC Rare /HPF (0-4) Urine Squamous Epithelial Cells Occ /LPF Urine Bacteria 0 /HPF (0-FEW) Urine Mucus Slight /LPF White Blood Count 4.8 x10^3/uL (4.0-11.0) Red Blood Count 2.62 x10^6/uL (4.30-5.70) Hemoglobin 7.6 g/dL (13.0-17.5) Hematocrit 23.1 % (39.0-53.0) Mean Corpuscular Volume 88 fL (79-100) Mean Corpuscular Hemoglobin 29 pg (25-35) Mean Corpuscular Hemoglobin Concent 33 g/dL (31-37) Red Cell Distribution Width 16.4 % (11.5-14.5) Platelet Count 131 x10^3/uL (140-400) Neutrophils (%) (Auto) 52 % (31-73) Lymphocytes (%) (Auto) 37 % (24-48) Monocytes (%) (Auto) 8 % (0-9) Eosinophils (%) (Auto) 1 % (0-3) Basophils (%) (Auto) 1 % (0-3) Neutrophils # (Auto) 2.5 x10^3/uL (1.8-7.7) Lymphocytes # (Auto) 1.8 x10^3/uL (1.0-4.8) Monocytes # (Auto) 0.4 x10^3/uL (0.0-1.1) Eosinophils # (Auto) 0.1 x10^3/uL (0.0-0.7) Basophils # (Auto) 0.1 x10^3/uL (0.0-0.2) Sodium Level 135 mmol/L (136-145) Potassium Level 4.4 mmol/L (3.5-5.1) Chloride Level 106 mmol/L (98-107) Carbon Dioxide Level 23 mmol/L (21-32) Anion Gap 6 (6-14) Blood Urea Nitrogen 24 mg/dL (8-26) Creatinine 1.2 mg/dL (0.7-1.3) Estimated GFR (Cockcroft-Gault) 76.9 BUN/Creatinine Ratio 20 (6-20) Glucose Level 269 mg/dL (70-99) Calcium Level 7.6 mg/dL (8.5-10.1) Total Bilirubin 0.4 mg/dL (0.2-1.0) Aspartate Amino Transf (AST/SGOT) 39 U/L (15-37) Alanine Aminotransferase (ALT/SGPT) 73 U/L (16-63) Alkaline Phosphatase 164 U/L (46-116) Total Protein 6.7 g/dL (6.4-8.2) Albumin 2.7 g/dL (3.4-5.0) Albumin/Globulin Ratio 0.7 (1.0-1.7) Lipase 901 U/L (73-393) Glucose (Fingerstick) 181 mg/dL (70-99) 141 mg/dL (70-99) Allergies: Coded Allergies: No Known Drug Allergies (Unverified , 09/26/16) Medications: Current Medications Medications (Trade) Dose Ordered Sig/Reny Route PRN Reason Start Time Stop Time Status Last Admin Dose Admin Morphine Sulfate (Morphine Sulfate) 5 mg 1X ONCE IV 02/17/21 00:15 02/17/21 00:16 DC 02/17/21 00:12 Multi-Ingredient Mouthwash/Gargle (Gi Cocktail) 20 ml 1X ONCE SWSW 02/17/21 00:15 02/17/21 00:16 DC 02/17/21 00:11 Morphine Sulfate (Morphine Sulfate) 5 mg 1X ONCE IV 02/17/21 01:15 02/17/21 01:16 DC 02/17/21 01:31 Ondansetron HCl (Zofran) 4 mg 1X ONCE IVP 02/17/21 01:15 02/17/21 01:16 DC 02/17/21 01:26 Iohexol (Omnipaque 240 Mg/ml) 30 ml 1X ONCE PO 02/17/21 02:00 02/17/21 02:01 DC 02/17/21 03:00 Iohexol (Omnipaque 300 Mg/ml) 75 ml 1X ONCE IV 02/17/21 02:00 02/17/21 02:01 DC 02/17/21 03:00 Morphine Sulfate (Morphine Sulfate) 5 mg 1X ONCE IV 02/17/21 04:15 02/17/21 04:16 DC 02/17/21 04:23 Morphine Sulfate (Morphine Sulfate) 5 mg PRN Q2HR PRN IV PAIN 02/17/21 06:00 02/17/21 09:01 DC 02/17/21 06:05 Sodium Chloride 1,000 ml @ 150 mls/hr Q6H40M IV 02/17/21 06:00 02/17/21 06:05 Amlodipine Besylate (Norvasc) 5 mg DAILY PO 02/17/21 09:00 02/17/21 10:36 Aspirin (Ecotrin) 81 mg DAILYWBKFT PO 02/17/21 09:00 02/17/21 10:36 Clopidogrel Bisulfate (Plavix) 75 mg DAILYWBKFT PO 02/17/21 09:00 02/17/21 10:35 Gabapentin (Neurontin) 300 mg TID PO 02/17/21 09:00 02/17/21 10:36 Lisinopril (Prinivil) 40 mg DAILY PO 02/17/21 09:00 02/17/21 10:35 Ondansetron HCl (Zofran) 4 mg PRN Q6HRS PRN IVP NAUSEA/VOMITING 02/17/21 08:30 02/17/21 10:35 Hydromorphone HCl (Dilaudid) 1 mg PRN Q4HRS PRN IVP PAIN 02/17/21 09:00 02/17/21 09:07 Imaging: Imaging: CT A/P IMPRESSION: 1. There is mild acute pancreatitis of the pancreas head. 2. Descending colon diverticulosis. PE: GEN: was asleep, seems uncomfortable when he woke up HEENT: Atraumatic, PERRL LUNGS: CTAB HEART: RRR ABD: quiet BS, soft, vague periumbilical tenderness EXTREMITY/SKIN: left toe wound vac, LLE wrapped NEURO/PSYCH: A & O 3, drowsy A/P: A/P: Mid abdominal pain, vomiting Anemia - chronic, worse now Elevated LFTs (new), elevated lipase Pancreatitis H/o GERD CRC screen - reports normal colonoscopy at age 48 Diverticulosis, h/o diverticulitis PAD w/ LLE stent on Plavix and ASA Uncontrolled DM, left toe wound NSAID use -- Check iron profile - already ordered. Check US r/o gallstones, eval liver. Add PPI. Check CEA and CA19-9 as no obvious cause for pancreatitis yet. No colonoscopy at [facility]. EDILBERTO AMBROCIO Feb 17, 2021 11:10
[2021-02-17] MEDS ORDERED: hydrALAZINE 20 MG/ML VIAL. IVP PRN (11:15)
[2021-02-17] MEDS: INSULIN LISPRO 300 UNITS/3 ML VIAL. SQ SCH ×2 (11:17→17:00)
[2021-02-17] MEDS: PANTOPRAZOLE IV PUSH 40 MG VIAL. IVP SCH (13:09)
[2021-02-17 15:00] VITALS: BP 186/102
[2021-02-17] MEDS ORDERED: IV NORMAL SALINE 1000ML BAG 1,000 ML IV ONE (15:30)
--- NOTE | 2021-02-17 15:35 | RAD ---
US ABDOMEN LTD History: Reason: pancreatitis, elevated LFTs/eval liver GB; try shortly after 1:00pm / Spl. Instruc tions: / History: Comparison: CT February 17, 2021. Technique: Transabdominal ultrasound images are obtained of the right upper quadrant. Findings: Liver is normal in echogenicity. Right hepatic lobe measures 18.8 cm. Portal flow is hepatopedal. No cholelithiasis. No gallbladder wall thickening. Common bile duct measures 3.7 mm in diameter. Visualized pancreas appears heterogeneous. Mild pancreatic ductal dilatation measures 4 mm. Mild free fluid within Morison's pouch. The right kidney measures 10.5 x 6.6 x 5.3 cm. No hydronephrosis. Small right renal cyst measures 0.9 cm. Visualized portions of the aorta and IVC have normal caliber. IMPRESSION: 1. Heterogeneous appearance of the pancreas compatible with known pancreatitis. 2. Mild pancreatic ductal dilatation. Electronically signed by: Cody Shearer DO (02/17/2021 3:33 PM) [id number]
--- NOTE | 2021-02-17 17:23 | NUR ---
SW following for discharge planning. Pt from home with [facility]. Coordinated care with Malika from [facility]. Pt on room air. Pt NPO and wound care is following. Pt admitted with pancreatitis and a hx of poorly controlled diabetes. Discharge plan is home with resumption of HH. SW following.
[2021-02-17 19:00] VITALS: BP 156/92
[2021-02-17] MEDS: ATORVASTATIN CALCIUM 20 MG TABLET PO SCH (20:23)
[2021-02-17 23:00] VITALS: BP 177/74
[2021-02-18] VITALS (7 sets, daily range): BP systolic 123–170; BP diastolic 76–84
[2021-02-18] MEDS: HYDROmorphone 2 MG/ML VIAL IVP PRN ×8 (01:41→22:10)
[2021-02-18] MEDS: IV NORMAL SALINE 1000ML BAG 1,000 ML IV SCH (05:00)
[2021-02-18] MEDS ORDERED: [UNRECOGNIZED DRUG - CODE] IV (05:19)
--- NOTE | 2021-02-18 06:06 | NUR ---
PT REQUESTING IV PAIN MEDICATION VERY 2-3 HOURS AND REQUESTING TO EAT. EXPLAINED THE PLAN OF CARE. HEART RATE INCREASE TO 160.S CALLED TO PLACED TO DR STAFFORD NO ORDERS RECEIVED, PT DENIES CHEST PAIN OR SOA. FOUND IV ABX AT BEDSIDE THAT PT BOUGHT FROM HOME , PT UPSET THAT MEDICATION WAS TAKEN AND SENT TO PHARMACY AND THAT MEDICATION WILL BE ORDERED BY MD. DR STAFFORD CALLED AGAIN AT 0600 FOR HEART RATE PF 166. NO ORDERS RECEIVED WILL CONTINUE WITH CURRENT PLAN OF CARE.
[2021-02-18] MEDS: MULTIVITAMIN with MINERAL TABLET. PO SCH (07:58)
[2021-02-18] MEDS: GABAPENTIN 300 MG CAPSULE. PO SCH ×3 (07:58→20:18)
[2021-02-18] MEDS: LISINOPRIL 20 MG TABLET PO SCH (07:59)
[2021-02-18] MEDS: amLODIPine BESYLATE 5 MG TABLET PO SCH (07:59)
[2021-02-18] MEDS: PANTOPRAZOLE IV PUSH 40 MG VIAL. IVP SCH (08:00)
[2021-02-18] MEDS: CLOPIDOGREL BISULFATE 75 MG TABLET PO SCH (08:00)
[2021-02-18] MEDS: ASPIRIN ENTERIC COATED 81 MG TABLET.DR. PO SCH (08:00)
[2021-02-18] MEDS: INSULIN LISPRO 300 UNITS/3 ML VIAL. SQ SCH ×3 (08:00→17:44)
[2021-02-18] MEDS ORDERED: INSULIN GLARGINE SYRINGE. SQ SCH ×2 (10:00→21:00)
--- NOTE | 2021-02-18 10:05 | PDOC ---
Provider Note Date of Service: DATE: 02/18/21 TIME: 09:49 Provider Note epi pain same, no new sxs- bp high, tachy but p waves present- exam same- hb low, was 11 01/08 so suspect asa/plavix- ct and abd sono look good, not a drinker-now has transaminitis as well as pancreatitis- could this be mediated by XAREVA, ON X 6 WEEKS OP- utd says 1% incidence of these but i see no other clear etiology for his dx- will hold xereva, ID consult to replace , follow labs- add metop for sinus tach, lantus for dm Justifications for Admission Other Justification JO ANN HAYNES MD Feb 18, 2021 10:05
[2021-02-18] MEDS: POTASSIUM CL 20MEQ D5-0.45NACL 1,000 ML IV SCH ×2 (10:52→20:17)
[2021-02-18 10:56] LABS: BASO % 0 % (0-3); EOS % 0 % (0-3); HEMATOCRIT 36.5 % (39.0-53.0); HEMOGLOBIN 11.9 g/dL (13.0-17.5); LYMPH # 1.7 x10^3/uL (1.0-4.8); LYMPH % 9 % (24-48); MEAN CORPUSCULAR HEMOGLOBIN 29 pg (25-35); MEAN CORPUSCULAR HGB CONC 33 g/dL (31-37); MEAN CORPUSCULAR VOLUME 87 fL (79-100); MONO # 1.6 x10^3/uL (0.0-1.1); MONO % 8 % (0-9); NEUT # 16.6 x10^3/uL (1.8-7.7); NEUT % 83 % (31-73); PLATELET COUNT 169 x10^3/uL (140-400); RED BLOOD COUNT 4.18 x10^6/uL (4.30-5.70); RED CELL DISTRIBUTION WIDTH 16.8 % (11.5-14.5)
[2021-02-18] MEDS: METOPROLOL TART IMMED RELEASE 25 MG TABLET. PO SCH ×2 (11:04→20:18)
[2021-02-18 11:09] LABS: ALBUMIN 2.3 g/dL (3.4-5.0); CALCIUM 7.6 mg/dL (8.5-10.1); CREATININE 1.5 mg/dL (0.7-1.3); DIRECT BILIRUBIN 0.3 mg/dL (0.0-0.2); GFR 59.5; TOTAL BILIRUBIN 0.6 mg/dL (0.2-1.0)
[2021-02-18 11:29] LABS: CHOLESTEROL/HDL RATIO 2.9
[2021-02-18 12:06] LABS: % LYMPHS 2 % (24-48); % MONOS 3 % (0-10); % SEGS 95 % (35-66)
[2021-02-18 12:07] LABS: PLT ESTIMATE ADEQUATE (ADEQUATE)
[2021-02-18] MEDS: MEROPENEM 500 MG in IV NORMAL SALINE 50ML 50 ML IV SCH (14:55)
[2021-02-18] MEDS ORDERED: metFORMIN 500 MG TABLET PO SCH (17:00)
[2021-02-18] MEDS: ATORVASTATIN CALCIUM 20 MG TABLET PO SCH (20:18)
[2021-02-18] MEDS: IV DEXTROSE 5 %-0.45 % NACL 1,000 ML IV SCH (21:00)
[2021-02-19] MEDS: HYDROmorphone 2 MG/ML VIAL IVP PRN ×3 (00:29→05:36)
[2021-02-19] MEDS: MEROPENEM 500 MG in IV NORMAL SALINE 50ML 50 ML IV SCH ×5 (00:32→23:17)
[2021-02-19 03:00] VITALS: BP 119/72
[2021-02-19] MEDS: IV DEXTROSE 5 %-0.45 % NACL 1,000 ML IV SCH ×3 (05:34→21:47)
[2021-02-19 05:51] LABS: HEMATOCRIT 34.3 % (39.0-53.0); HEMOGLOBIN 11.7 g/dL (13.0-17.5); RED BLOOD COUNT 3.99 x10^6/uL (4.30-5.70); RED CELL DISTRIBUTION WIDTH 16.4 % (11.5-14.5); WHITE BLOOD COUNT 13.6 x10^3/uL (4.0-11.0)
[2021-02-19 07:00] VITALS: BP 133/76
[2021-02-19] MEDS ORDERED: PANTOPRAZOLE 40 MG TABLET.DR. PO SCH (07:30)
[2021-02-19] MEDS ORDERED: ERTAPENEM 0.5 GM in IV NORMAL SALINE 50ML 50 ML IV SCH (08:00)
[2021-02-19] MEDS: INSULIN LISPRO 300 UNITS/3 ML VIAL. SQ SCH ×3 (08:00→17:00)
--- NOTE | 2021-02-19 08:07 | PDOC ---
Provider Note Date of Service: DATE: 02/19/21 TIME: 08:05 Provider Note feels better , 50% less pain, no new sxs- bp/pulse better, exam same- TAs better, lipase higher 02/19- will cont gi rest , allow pancreatitis to subside, CL / likely- more lantus- note 1st hb low, rest are ok, was spurious Justifications for Admission Other Justification JO ANN HAYNES MD Feb 19, 2021 08:07
--- NOTE | 2021-02-19 08:24 | PDOC ---
Infectious Disease Note Vital Sign Vital Signs Vital Signs Date Time Temp Pulse Resp B/P (MAP) Pulse Ox O2 Delivery O2 Flow Rate FiO2 02/19/21 05:36 18 Room Air 02/19/21 03:00 97.9 100 119/72 (88) 91 97.9 Labs Lab Laboratory Tests Test 02/18/21 10:24 02/18/21 12:23 02/18/21 17:06 02/18/21 21:46 White Blood Count 20.0 x10^3/uL (4.0-11.0) Red Blood Count 4.18 x10^6/uL (4.30-5.70) Hemoglobin 11.9 g/dL (13.0-17.5) Hematocrit 36.5 % (39.0-53.0) Mean Corpuscular Volume 87 fL (79-100) Mean Corpuscular Hemoglobin 29 pg (25-35) Mean Corpuscular Hemoglobin Concent 33 g/dL (31-37) Red Cell Distribution Width 16.8 % (11.5-14.5) Platelet Count 169 x10^3/uL (140-400) Neutrophils (%) (Auto) 83 % (31-73) Lymphocytes (%) (Auto) 9 % (24-48) Monocytes (%) (Auto) 8 % (0-9) Eosinophils (%) (Auto) 0 % (0-3) Basophils (%) (Auto) 0 % (0-3) Neutrophils # (Auto) 16.6 x10^3/uL (1.8-7.7) Lymphocytes # (Auto) 1.7 x10^3/uL (1.0-4.8) Monocytes # (Auto) 1.6 x10^3/uL (0.0-1.1) Eosinophils # (Auto) 0.0 x10^3/uL (0.0-0.7) Basophils # (Auto) 0.0 x10^3/uL (0.0-0.2) Segmented Neutrophils % 95 % (35-66) Lymphocytes % 2 % (24-48) Monocytes % 3 % (0-10) Platelet Estimate Adequate (ADEQUATE) Sodium Level 139 mmol/L (136-145) Potassium Level 5.0 mmol/L (3.5-5.1) Chloride Level 109 mmol/L (98-107) Carbon Dioxide Level 21 mmol/L (21-32) Anion Gap 9 (6-14) Blood Urea Nitrogen 32 mg/dL (8-26) Creatinine 1.5 mg/dL (0.7-1.3) Estimated GFR (Cockcroft-Gault) 59.5 Glucose Level 243 mg/dL (70-99) Calcium Level 7.6 mg/dL (8.5-10.1) Iron Level 22 ug/dL (65-175) Total Iron Binding Capacity 126 ug/dL (250-450) Iron Saturation 17 % (15-34) Total Bilirubin 0.6 mg/dL (0.2-1.0) Direct Bilirubin 0.3 mg/dL (0.0-0.2) Aspartate Amino Transf (AST/SGOT) 29 U/L (15-37) Alanine Aminotransferase (ALT/SGPT) 47 U/L (16-63) Alkaline Phosphatase 109 U/L (46-116) Total Protein 6.0 g/dL (6.4-8.2) Albumin 2.3 g/dL (3.4-5.0) Triglycerides Level 37 mg/dL (0-150) Cholesterol Level 58 mg/dL (0-200) LDL Cholesterol, Calculated 31 mg/dL (0-100) VLDL Cholesterol, Calculated 7 mg/dL (0-40) Non-HDL Cholesterol Calculated 38 mg/dL (0-129) HDL Cholesterol 20 mg/dL (40-60) Cholesterol/HDL Ratio 2.9 Lipase 3465 U/L (73-393) Glucose (Fingerstick) 267 mg/dL (70-99) 272 mg/dL (70-99) 223 mg/dL (70-99) Test 02/19/21 05:40 02/19/21 07:50 White Blood Count 13.6 x10^3/uL (4.0-11.0) Red Blood Count 3.99 x10^6/uL (4.30-5.70) Hemoglobin 11.7 g/dL (13.0-17.5) Hematocrit 34.3 % (39.0-53.0) Mean Corpuscular Volume 86 fL (79-100) Mean Corpuscular Hemoglobin 29 pg (25-35) Mean Corpuscular Hemoglobin Concent 34 g/dL (31-37) Red Cell Distribution Width 16.4 % (11.5-14.5) Platelet Count 114 x10^3/uL (140-400) Glucose (Fingerstick) 202 mg/dL (70-99) Objective Assessment pt seen, consult dictated Plan Plan of Care / ONEL GARCIA MD Feb 19, 2021 08:24
[2021-02-19] MEDS: HYDROcodone/APAP 7.5/325MG 1 TAB TABLET PO PRN ×4 (08:42→21:32)
[2021-02-19] MEDS: GABAPENTIN 300 MG CAPSULE. PO SCH ×3 (08:43→21:33)
[2021-02-19] MEDS: MULTIVITAMIN with MINERAL TABLET. PO SCH (08:43)
[2021-02-19] MEDS: ASPIRIN ENTERIC COATED 81 MG TABLET.DR. PO SCH (08:43)
[2021-02-19] MEDS: CLOPIDOGREL BISULFATE 75 MG TABLET PO SCH (08:44)
[2021-02-19] MEDS: METOPROLOL TART IMMED RELEASE 25 MG TABLET. PO SCH ×2 (08:49→21:33)
[2021-02-19] MEDS: amLODIPine BESYLATE 5 MG TABLET PO SCH (08:49)
[2021-02-19] MEDS: LISINOPRIL 20 MG TABLET PO SCH (08:50)
[2021-02-19] MEDS ORDERED: INSULIN GLARGINE SYRINGE. SQ SCH (10:00)
[2021-02-19 11:00] VITALS: BP 143/79
[2021-02-19 15:00] VITALS: BP 124/70
[2021-02-19 19:00] VITALS: BP 171/91
[2021-02-19] MEDS: ATORVASTATIN CALCIUM 20 MG TABLET PO SCH (21:33)
--- NOTE | 2021-02-19 22:04 | CONS ---
DATE OF CONSULTATION: 02/19/2021 REQUESTING PHYSICIAN: Dr. Mitchell. REASON FOR CONSULTATION: Toe wound with antibiotics and pancreatitis. HISTORY OF PRESENT ILLNESS: This is a 50-year-old gentleman who was discharged around the end of December. The patient had a necrotic big toe. The patient had a leg bypass done as well as a debridement of the toe done. The patient did have initial superficial cultures, showed Acinetobacter, Stenotrophomonas and MSSA and then intraoperative culture showed Enterobacter cloacae and Staph aureus. The patient was discharged on eravacycline and the patient had been doing that. The patient came in with abdominal pain and vomited once, was found to have pancreatitis. The patient is right now comfortable. Some abdominal pain present. No more nausea or vomiting. Denies any diarrhea, denies any urinary symptoms or bowel symptoms. He does have a wound VAC into the left big toe. The patient denies any fever or chills. PAST MEDICAL HISTORY: Positive for diabetes mellitus, hypertension, peripheral arterial disease and now with left lower extremity bypass done and toe debridement. Has had tonsillectomy in the past. SOCIAL HISTORY: Negative for smoking, alcohol use or drug use. ALLERGIES: No known drug allergies. CURRENT MEDICATIONS: Reviewed. REVIEW OF SYSTEMS: As in HPI. All other systems reviewed are negative. PHYSICAL EXAMINATION: GENERAL: Alert, oriented gentleman, not in distress. VITAL SIGNS: Stable. Temperature 97.9, pulse 100, respirations 17, blood pressure 119/72. HEENT: Both pupils are round and reacting. No conjunctival lesion, no lesion in the mouth. NECK: Supple, no JVP, no lymphadenopathy. LUNGS: Clear. HEART: S1, S2 regular. ABDOMEN: Soft, nontender, no organomegaly. EXTREMITIES: No edema, cyanosis. Left big toe wound VAC is in place since Saturday, hence he was not opened because they cannot put it back together. Wound care nurses are not here. The pictures that he showed on his phone look really good. NEUROLOGIC: The patient is alert, awake and appropriate. No focal neurologic deficit. LABORATORY DATA: White count is 20,000 on admission, down to 13.6; platelets are 114,000. BUN and creatinine is 32 and 1.5. His lipase went up to 3465. Urinalysis unremarkable. Abdominal CT done, which showed a mild acute pancreatitis. IMPRESSION: 1. Acute mild pancreatitis. It is possible. Eravacycline may have caused it . The probability is less than 1%, although it is tetracycline derivative, so it is possible. 2. Leukocytosis. 3. 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 Still has a wound. 4. Left lower extremity bypass. 5. Hypertension. RECOMMENDATIONS: Recommend continue supportive care. Continue meropenem for the time being. We will look at the wound tomorrow and hopefully he may not even need antibiotics as the picture on the phone suggests. Thank you very much, Dr. Mitchell and Dr. Mcgee, for giving me the opportunity to participate in this patient's care. ONEL GARCIA MD DR: FLORENTIN/chika JOB#: [id number] / [id number] RONA
[2021-02-19 23:00] VITALS: BP 175/95
[2021-02-20] MEDS: HYDROcodone/APAP 7.5/325MG 1 TAB TABLET PO PRN ×2 (01:31→05:33)
[2021-02-20 03:00] VITALS: BP 122/80
[2021-02-20] MEDS: MEROPENEM 500 MG in IV NORMAL SALINE 50ML 50 ML IV SCH (05:34)
[2021-02-20] MEDS: IV DEXTROSE 5 %-0.45 % NACL 1,000 ML IV SCH ×2 (05:40→17:28)
[2021-02-20 06:06] LABS: HEMATOCRIT 28.7 % (39.0-53.0); HEMOGLOBIN 9.6 g/dL (13.0-17.5); RED BLOOD COUNT 3.33 x10^6/uL (4.30-5.70); RED CELL DISTRIBUTION WIDTH 16.6 % (11.5-14.5); WHITE BLOOD COUNT 10.8 x10^3/uL (4.0-11.0)
[2021-02-20 07:00] VITALS: BP 153/79
[2021-02-20] MEDS: amLODIPine BESYLATE 5 MG TABLET PO SCH (08:33)
[2021-02-20] MEDS: GABAPENTIN 300 MG CAPSULE. PO SCH ×3 (08:33→21:45)
[2021-02-20] MEDS: MULTIVITAMIN with MINERAL TABLET. PO SCH (08:33)
[2021-02-20] MEDS: ASPIRIN ENTERIC COATED 81 MG TABLET.DR. PO SCH (08:33)
[2021-02-20] MEDS: CLOPIDOGREL BISULFATE 75 MG TABLET PO SCH (08:33)
[2021-02-20] MEDS: LISINOPRIL 20 MG TABLET PO SCH (08:34)
--- NOTE | 2021-02-20 08:47 | PDOC ---
Provider Note Date of Service: DATE: 02/20/21 TIME: 08:30 Provider Note vss, no temp- exam same , pain some less still- lipase pending, TAs better 02/19- will try [place] diet, slow iv, add metformin back and dc lantus- add lovenox , encouraged to walk more as high risk for dvt Justifications for Admission Other Justification JO ANN HAYNES MD Feb 20, 2021 08:47
[2021-02-20] MEDS ORDERED: ENOXAPARIN 40 MG/0.4 ML SYRINGE. SQ SCH (09:00)
[2021-02-20] MEDS: HYDROcodone/APAP 5/325MG 1 TAB TABLET PO PRN ×4 (09:33→21:46)
--- NOTE | 2021-02-20 09:41 | PDOC ---
Infectious Disease Note Subjective Subjective pt is feeling better, abd pain is improving ROS ROS no n/v/d/sob Vital Sign Vital Signs Vital Signs Date Time Temp Pulse Resp B/P (MAP) Pulse Ox O2 Delivery O2 Flow Rate FiO2 02/20/21 09:33 18 Room Air 02/20/21 08:34 90 153/79 02/20/21 07:00 97.9 100 97.9 Physical Exam PHYSICAL EXAM GENERAL: Alert, oriented gentleman, not in distress. VITAL SIGNS: Stable. HEENT: Both pupils are round and reacting. No conjunctival lesion, no lesion in the mouth. NECK: Supple, no JVP, no lymphadenopathy. LUNGS: Clear. HEART: S1, S2 regular. ABDOMEN: Soft, nontender, no organomegaly. EXTREMITIES: No edema, cyanosis. Left big toe wound seen, healthy granulation, healing well, no bone or tendon exposed, slight fibrous tissue NEUROLOGIC: The patient is alert, awake and appropriate. No focal neurologic deficit. Labs Lab Laboratory Tests Test 02/19/21 11:19 02/19/21 19:11 02/20/21 06:00 02/20/21 07:18 Glucose (Fingerstick) 208 mg/dL (70-99) 174 mg/dL (70-99) 54 mg/dL (70-99) White Blood Count 10.8 x10^3/uL (4.0-11.0) Red Blood Count 3.33 x10^6/uL (4.30-5.70) Hemoglobin 9.6 g/dL (13.0-17.5) Hematocrit 28.7 % (39.0-53.0) Mean Corpuscular Volume 86 fL (79-100) Mean Corpuscular Hemoglobin 29 pg (25-35) Mean Corpuscular Hemoglobin Concent 34 g/dL (31-37) Red Cell Distribution Width 16.6 % (11.5-14.5) Platelet Count 146 x10^3/uL (140-400) Test 02/20/21 08:10 Glucose (Fingerstick) 97 mg/dL (70-99) Objective Assessment IMPRESSION: 1. Acute mild pancreatitis. It is possible. Eravacycline may have done it . T he probability is less than 1%, although it is tetracycline derivative, so it is possible. 2. Leukocytosis. 3. 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 Still has a wound. 4. Left lower extremity bypass. 5. Hypertension. Plan Plan of Care d/c antibiotics oral can be done but with his pancreatitis will not done anything unless wound gets worse, no sign of infection now ONEL GARCIA MD Feb 20, 2021 09:41
[2021-02-20 10:41] VITALS: BP 127/72
--- NOTE | 2021-02-20 11:00 | PDOC ---
Date of Service: DATE: 02/20/21 TIME: 10:52 Subjective: Subjective: Abd pain is some better but still there. Tells me he hasn't; would be willing to try liquids but hesitant to make pain worse. Reviewed orders - has full liquids ordered. Not passing much gas. Objective: Objective: D/w Dr. Mitchell. Reviewed meds - ?off PPI Vital Signs: Vital Signs Date Time Temp Pulse Resp B/P (MAP) Pulse Ox O2 Delivery O2 Flow Rate FiO2 02/20/21 10:41 98.0 104 20 127/72 (90) 100 98.0 02/20/21 09:33 Room Air Labs: Laboratory Tests Test 02/19/21 11:19 02/19/21 19:11 02/20/21 07:18 02/20/21 08:10 Glucose (Fingerstick) 208 mg/dL (70-99) 174 mg/dL (70-99) 54 mg/dL (70-99) 97 mg/dL (70-99) Imaging: US 02/17 Findings: Liver is normal in echogenicity. Right hepatic lobe measures 18.8 cm. Portal flow is hepatopedal. No cholelithiasis. No gallbladder wall thickening. Common bile duct measures 3.7 mm in diameter. Visualized pancreas appears heterogeneous. Mild pancreatic ductal dilatation measures 4 mm. Mild free fluid within Morison's pouch. The right kidney measures 10.5 x 6.6 x 5.3 cm. No hydronephrosis. Small right renal cyst measures 0.9 cm. Visualized portions of the aorta and IVC have normal caliber. IMPRESSION: 1. Heterogeneous appearance of the pancreas compatible with known pancreatitis. 2. Mild pancreatic ductal dilatation. PE: GEN: NAD - appears more comfortable from when we saw on Saturday LUNGS: CTAB HEART: borderline tachycardic ABD: quiet BS, soft, tender epigastrium to LUQ NEURO/PSYCH: A & O 3 A/P: Pancreatitis, elevated LFTs - unclear cause - no alcohol history, no cholelithiasis, normal trigs, normal CA19-9, CEA 5 (normal 4.7) ACD H/o GERD and NSAID use PAD, DM, toe wound -- Trying diet. ?drug to blame Will review all w/ Dr. Boyer - ?outpt MRCP, etc. Probably should have some type of acid-ui software developer. Justicifation of Admission Dx: Justifications for Admission: Justification of Admission Dx: Comment: EDILBERTO AMBROCIO Feb 20, 2021 11:00
[2021-02-20] MEDS: metFORMIN 500 MG TABLET PO SCH ×2 (11:36→17:25)
--- NOTE | 2021-02-20 15:27 | NUR ---
SW following for discharge planning. Spoke with RN and reviewed chart. Pt from home. SW met with pt. Pt on room air. Working to advance pt's diet. IV Meropenem stopped per ID. Pt has used [facility] for home IV abx infusion in the past but does not appear to need this after discharge from this admission. Pt current with [facility] and would like to resume services on discharge. Patient choice of vendor form completed. SW following.
[2021-02-20 15:37] LABS: FECAL OB PT NEGATIVE (NEG)
--- NOTE | 2021-02-20 16:38 | NUR ---
Wound Care Wound Type/Assessment: Follow up with patient to change NPWT dressing to L plantar great toe. Dressing had been removed by physicians prior to arrival and had a wet-to-dry dressing in place. Wound cleansed, pictured, and measured. Wound bed will granulated with very minimal slough observed at 6:00, and a vertical, narrow strip of exposed adipose tissue at 12:00. Wound margins pink and epithelialized with minimal soft callus buildup. Applied wound vac dressing using one piece of black foam, bridged to L lateral calf. Good seal achieved, new canister placed. No other wounds noted on head to toe assessment. Treatment Recommendations/Plan: Pt will wear half shoe with all ambulation. NPWT to be left in place until WC RN follow up on 02/22/21. Pt states he may discharge home on , and home health will likely resume dressing changes on Saturday. Education provided: Educated to change position to avoid other skin problem areas, importance of wearing offloading shoe to relieve pressure from wound while walking, and home wound vac and dressing care. Offloading surface/device: Half shoe Recommended Referrals/Tests: NA Discharge Recommendations for dressings: Continue home wound vac until follow up with wound clinic on Saturday02/28/21 (pending DC from hospital). Home health should be resumed in order to manage wound care at home. Wound care will monitor chart for possible DC and plan from there.
[2021-02-20 19:00] VITALS: BP 112/82
[2021-02-20] MEDS: ATORVASTATIN CALCIUM 20 MG TABLET PO SCH (21:45)
[2021-02-20 23:00] VITALS: BP 109/76
[2021-02-21 03:00] VITALS: BP 141/79
[2021-02-21] MEDS: HYDROcodone/APAP 5/325MG 1 TAB TABLET PO PRN (06:14)
[2021-02-21 07:00] VITALS: BP 153/83
[2021-02-21 07:00] LABS: HEMATOCRIT 26.6 % (39.0-53.0); HEMOGLOBIN 8.8 g/dL (13.0-17.5); RED BLOOD COUNT 3.06 x10^6/uL (4.30-5.70); RED CELL DISTRIBUTION WIDTH 16.3 % (11.5-14.5)
[2021-02-21 07:16] LABS: ALBUMIN 1.9 g/dL (3.4-5.0); DIRECT BILIRUBIN 0.2 mg/dL (0.0-0.2); TOTAL BILIRUBIN 0.5 mg/dL (0.2-1.0); TOTAL PROTEIN 5.7 g/dL (6.4-8.2)
--- NOTE | 2021-02-21 08:17 | PDOC ---
Provider Note Date of Service: DATE: 02/21/21 TIME: 08:15 Provider Note vss, no temp, pain less after fl diet- exam same- hb lower , TAs mildly up again, ? statin, tylenol- will adv diet, dc iv , hold ator/norco and use tramadol- follow Tas and hb, add protonix as he is on asa/plavix that must continue re arterial stent Justifications for Admission Other Justification JO ANN HAYNES MD Feb 21, 2021 08:17
[2021-02-21] MEDS: ASPIRIN ENTERIC COATED 81 MG TABLET.DR. PO SCH (08:36)
[2021-02-21] MEDS: metFORMIN 500 MG TABLET PO SCH ×2 (08:36→16:46)
[2021-02-21] MEDS: PANTOPRAZOLE 40 MG TABLET.DR. PO SCH (08:36)
[2021-02-21] MEDS: MULTIVITAMIN with MINERAL TABLET. PO SCH (08:36)
[2021-02-21] MEDS: CLOPIDOGREL BISULFATE 75 MG TABLET PO SCH (08:37)
[2021-02-21] MEDS: GABAPENTIN 300 MG CAPSULE. PO SCH ×3 (08:37→20:54)
[2021-02-21] MEDS: LISINOPRIL 20 MG TABLET PO SCH (08:41)
[2021-02-21] MEDS: amLODIPine BESYLATE 5 MG TABLET PO SCH (08:42)
[2021-02-21] MEDS: traMADol 50 MG TABLET PO PRN ×3 (10:21→22:42)
--- NOTE | 2021-02-21 10:34 | PDOC ---
Infectious Disease Note Subjective Subjective pt is feeling better, abd pain is improving ROS ROS no n/v/d/ Vital Sign Vital Signs Vital Signs Date Time Temp Pulse Resp B/P (MAP) Pulse Ox O2 Delivery O2 Flow Rate FiO2 02/21/21 10:21 97 Room Air 02/21/21 08:42 93 153/83 02/21/21 07:00 97.5 18 97.5 Physical Exam PHYSICAL EXAM GENERAL: Alert, oriented gentleman, not in distress. VITAL SIGNS: Stable. HEENT: Both pupils are round and reacting. No conjunctival lesion, no lesion in the mouth. NECK: Supple, no JVP, no lymphadenopathy. LUNGS: Clear. HEART: S1, S2 regular. ABDOMEN: Soft, nontender, no organomegaly. EXTREMITIES: No edema, cyanosis. Left big toe wound seen, healthy granulation, healing well, no bone or tendon exposed, slight fibrous tissue NEUROLOGIC: The patient is alert, awake and appropriate. No focal neurologic deficit. Labs Lab Laboratory Tests Test 02/20/21 12:37 02/20/21 15:25 02/20/21 17:08 02/20/21 21:05 Glucose (Fingerstick) 211 mg/dL (70-99) 74 mg/dL (70-99) 188 mg/dL (70-99) Stool Occult Blood Negative (NEG) Test 02/21/21 06:50 02/21/21 08:02 White Blood Count 6.0 x10^3/uL (4.0-11.0) Red Blood Count 3.06 x10^6/uL (4.30-5.70) Hemoglobin 8.8 g/dL (13.0-17.5) Hematocrit 26.6 % (39.0-53.0) Mean Corpuscular Volume 87 fL (79-100) Mean Corpuscular Hemoglobin 29 pg (25-35) Mean Corpuscular Hemoglobin Concent 33 g/dL (31-37) Red Cell Distribution Width 16.3 % (11.5-14.5) Platelet Count 169 x10^3/uL (140-400) Total Bilirubin 0.5 mg/dL (0.2-1.0) Direct Bilirubin 0.2 mg/dL (0.0-0.2) Aspartate Amino Transf (AST/SGOT) 91 U/L (15-37) Alanine Aminotransferase (ALT/SGPT) 101 U/L (16-63) Alkaline Phosphatase 96 U/L (46-116) Total Protein 5.7 g/dL (6.4-8.2) Albumin 1.9 g/dL (3.4-5.0) Lipase 75 U/L (73-393) Glucose (Fingerstick) 60 mg/dL (70-99) Objective Assessment IMPRESSION: 1. Acute mild pancreatitis. It is possible. Eravacycline may have done it . The probability is less than 1%, although it is tetracycline derivative, so it is possible. 2. Leukocytosis. 3. 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 Still has a wound. 4. Left lower extremity bypass. 5. Hypertension. Plan Plan of Care d/c antibiotics oral can be done but with his pancreatitis will not done anything unless wound gets worse, no sign of infection now ok to d/c from ID stand point ONEL GARCIA MD Feb 21, 2021 10:33
--- NOTE | 2021-02-21 10:34 | PDOC ---
Date of Service: DATE: 02/21/21 TIME: 10:28 Subjective: Subjective: Feels better today - ate some eggs and part of a pancake and some sausage - didn't want to overdo it. Epigastric pain persists but is a lot better from yesterda - still thinks he might need some help w/ PO pain meds. Objective: Objective: D/w Dr. Mitchell. Vital Signs: Vital Signs Date Time Temp Pulse Resp B/P (MAP) Pulse Ox O2 Delivery O2 Flow Rate FiO2 02/21/21 10:21 97 Room Air 02/21/21 08:42 93 153/83 02/21/21 07:00 97.5 18 97.5 Labs: Laboratory Tests Test 02/20/21 12:37 02/20/21 15:25 02/20/21 17:08 02/20/21 21:05 Glucose (Fingerstick) 211 mg/dL 74 mg/dL 188 mg/dL Stool Occult Blood Negative Test 02/21/21 06:50 02/21/21 08:02 White Blood Count 6.0 x10^3/uL Red Blood Count 3.06 x10^6/uL Hemoglobin 8.8 g/dL Hematocrit 26.6 % Mean Corpuscular Volume 87 fL Mean Corpuscular Hemoglobin 29 pg Mean Corpuscular Hemoglobin Concent 33 g/dL Red Cell Distribution Width 16.3 % Platelet Count 169 x10^3/uL Total Bilirubin 0.5 mg/dL Direct Bilirubin 0.2 mg/dL Aspartate Amino Transf (AST/SGOT) 91 U/L Alanine Aminotransferase (ALT/SGPT) 101 U/L Alkaline Phosphatase 96 U/L Total Protein 5.7 g/dL Albumin 1.9 g/dL Lipase 75 U/L Glucose (Fingerstick) 60 mg/dL PE: GEN: NAD - looks better otday, sitting on edge of bed LUNGS: CTAB HEART: RRR ABD: S/ND/NT NEURO/PSYCH: A & O 3 A/P: Pancreatitis - unclear etiology, improving Mildly elevated AST and ALT - fluctuating, normal liver on imaging ACD, Hemoccult negative H/o GERD and NSAID use - on PPI PAD on Plavix and ASA, DM, toe wound -- Pancreatitis symptoms improving, consider DC soon. Can monitor LFTs and consider EGD and MRCP as outpt. Justicifation of Admission Dx: Justifications for Admission: Justification of Admission Dx: Comment: EDILBERTO AMBROCIO Feb 21, 2021 10:34
[2021-02-21 11:00] VITALS: BP 144/77
--- NOTE | 2021-02-21 13:10 | NUR ---
ASHISH following for discharge planning. Spoke with RN and reviewed chart. Diet advanced to ADA. Abx stopped per ID. Discharge plan is home with [facility] . ASHISH sent message to Dr. Mitchell to ask about possible discharge orders for today, 02/21. ASHISH following. Addendum: 02/21/21 at 1350 by HEYDI HINOJOSA Possible discharge tomorrow, 02/[address] Mitchell.
[2021-02-21 15:00] VITALS: BP 151/86
[2021-02-21 19:00] VITALS: BP 171/81
[2021-02-21 22:43] VITALS: BP 162/79
[2021-02-22 02:43] VITALS: BP 165/80
[2021-02-22] MEDS: traMADol 50 MG TABLET PO PRN (05:34)
[2021-02-22 06:13] LABS: ALBUMIN 2.1 g/dL (3.4-5.0); DIRECT BILIRUBIN 0.2 mg/dL (0.0-0.2); TOTAL BILIRUBIN 0.5 mg/dL (0.2-1.0); TOTAL PROTEIN 6.5 g/dL (6.4-8.2)
[2021-02-22 07:01] LABS: HEMATOCRIT 29.1 % (39.0-53.0); HEMOGLOBIN 9.6 g/dL (13.0-17.5); RED BLOOD COUNT 3.34 x10^6/uL (4.30-5.70); RED CELL DISTRIBUTION WIDTH 16.3 % (11.5-14.5); WHITE BLOOD COUNT 5.8 x10^3/uL (4.0-11.0)
[2021-02-22 07:25] VITALS: BP 137/78
[2021-02-22] MEDS: PANTOPRAZOLE 40 MG TABLET.DR. PO SCH (07:30)
--- NOTE | 2021-02-22 08:05 | PDOC ---
Provider Note Date of Service: DATE: 02/22/21 TIME: 08:04 Provider Note [id number] Justifications for Admission Other Justification JO ANN HAYNES MD Feb 22, 2021 08:05
--- NOTE | 2021-02-22 09:07 | PDOC ---
Infectious Disease Note Subjective Subjective pt is feeling better, no abdominal pain ROS ROS No nausea vomiting diarrhea Vital Sign Vital Signs Vital Signs Date Time Temp Pulse Resp B/P (MAP) Pulse Ox O2 Delivery O2 Flow Rate FiO2 02/22/21 06:34 100 Room Air 02/22/21 02:43 97.8 80 18 165/80 (108) 97.8 Physical Exam PHYSICAL EXAM GENERAL: Alert, oriented gentleman, not in distress. VITAL SIGNS: Stable. HEENT: Both pupils are round and reacting. No conjunctival lesion, no lesion in the mouth. NECK: Supple, no JVP, no lymphadenopathy. LUNGS: Clear. HEART: S1, S2 regular. ABDOMEN: Soft, nontender, no organomegaly. EXTREMITIES: No edema, cyanosis. Left big toe wound seen, healthy granulation, healing well, no bone or tendon exposed, slight fibrous tissue NEUROLOGIC: The patient is alert, awake and appropriate. No focal neurologic deficit. Labs Lab Laboratory Tests Test 02/21/21 11:11 02/21/21 16:58 02/21/21 19:21 02/22/21 05:31 Glucose (Fingerstick) 134 mg/dL (70-99) 184 mg/dL (70-99) 189 mg/dL (70-99) 161 mg/dL (70-99) Test 02/22/21 05:40 02/22/21 07:13 White Blood Count 5.8 x10^3/uL (4.0-11.0) Red Blood Count 3.34 x10^6/uL (4.30-5.70) Hemoglobin 9.6 g/dL (13.0-17.5) Hematocrit 29.1 % (39.0-53.0) Mean Corpuscular Volume 87 fL (79-100) Mean Corpuscular Hemoglobin 29 pg (25-35) Mean Corpuscular Hemoglobin Concent 33 g/dL (31-37) Red Cell Distribution Width 16.3 % (11.5-14.5) Platelet Count 233 x10^3/uL (140-400) Total Bilirubin 0.5 mg/dL (0.2-1.0) Direct Bilirubin 0.2 mg/dL (0.0-0.2) Aspartate Amino Transf (AST/SGOT) 91 U/L (15-37) Alanine Aminotransferase (ALT/SGPT) 162 U/L (16-63) Alkaline Phosphatase 147 U/L (46-116) Total Protein 6.5 g/dL (6.4-8.2) Albumin 2.1 g/dL (3.4-5.0) Glucose (Fingerstick) 170 mg/dL (70-99) Objective Assessment IMPRESSION: 1. Acute mild pancreatitis. It is possible. Eravacycline may have done it . The probability is less than 1%, although it is tetracycline derivative, so it is possible. 2. Leukocytosis. 3. 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 Still has a wound. 4. Left lower extremity bypass. 5. Hypertension. Plan Plan of Care DC PICC line No antibiotics Wound VAC has been discontinued by wound care Patient is following up with the wound care center in 1 week if worse they will call me though the weight looks it should continue to improve and heal ONEL GARCIA MD Feb 22, 2021 09:07
[2021-02-22] MEDS: amLODIPine BESYLATE 5 MG TABLET PO SCH (09:12)
[2021-02-22] MEDS: MULTIVITAMIN with MINERAL TABLET. PO SCH (09:13)
[2021-02-22] MEDS: CLOPIDOGREL BISULFATE 75 MG TABLET PO SCH (09:13)
[2021-02-22] MEDS: ASPIRIN ENTERIC COATED 81 MG TABLET.DR. PO SCH (09:13)
[2021-02-22 09:14] VITALS: BP 137/78
[2021-02-22] MEDS: LISINOPRIL 20 MG TABLET PO SCH (09:14)
[2021-02-22] MEDS: metFORMIN 500 MG TABLET PO SCH (09:14)
[2021-02-22] MEDS: GABAPENTIN 300 MG CAPSULE. PO SCH (09:14)
--- NOTE | 2021-02-22 09:44 | PDOC ---
Date of Service: DATE: 02/22/21 TIME: 09:42 Subjective: Subjective: Feels better, going home today. Found the acid pill he takes at home - omeprazole. Objective: Objective: D/w Dr. Mitchell - plans to monitor LFTs as outpt off statin and Tylenol/Percocet. Vital Signs: Vital Signs Date Time Temp Pulse Resp B/P (MAP) Pulse Ox O2 Delivery O2 Flow Rate FiO2 02/22/21 09:14 101 137/78 02/22/21 06:34 100 Room Air 02/22/21 02:43 97.8 18 97.8 Labs: Laboratory Tests Test 02/21/21 11:11 02/21/21 16:58 02/21/21 19:21 02/22/21 05:31 Glucose (Fingerstick) 134 mg/dL 184 mg/dL 189 mg/dL 161 mg/dL Test 02/22/21 05:40 02/22/21 07:13 White Blood Count 5.8 x10^3/uL Red Blood Count 3.34 x10^6/uL Hemoglobin 9.6 g/dL Hematocrit 29.1 % Mean Corpuscular Volume 87 fL Mean Corpuscular Hemoglobin 29 pg Mean Corpuscular Hemoglobin Concent 33 g/dL Red Cell Distribution Width 16.3 % Platelet Count 233 x10^3/uL Total Bilirubin 0.5 mg/dL Direct Bilirubin 0.2 mg/dL Aspartate Amino Transf (AST/SGOT) 91 U/L Alanine Aminotransferase (ALT/SGPT) 162 U/L Alkaline Phosphatase 147 U/L Total Protein 6.5 g/dL Albumin 2.1 g/dL Glucose (Fingerstick) 170 mg/dL PE: GEN: NAD LUNGS: CTAB HEART: RRR ABD: S/ND/NT NEURO/PSYCH: A & O 3 A/P: Pancreatitis - improved, unclear cause Mildly elevated LFTs ACD H/o GERD and NSAID use - on PPI PAD on Plavix and ASA, DM -- DC per primary, plans to monitor labs as above. Consider outpt MRCP and EGD - our office will contact. Continue PPI. Justicifation of Admission Dx: Justifications for Admission: Justification of Admission Dx: Comment: EDILBERTO AMBROCIO Feb 22, 2021 09:44
--- NOTE | 2021-02-22 11:50 | NUR ---
Discharge Note: REJI BURNS Discharge instructions and discharge home medications reviewed with Patient and a copy given. All questions have been answered and understanding verbalized. The following instructions and handouts were given: follow up instructions Discontinued lines and drains: picc line on right upper arm. patient tolerated well. Patient discharged to home with self care via family.
--- NOTE | 2021-02-22 12:25 | DS ---
DATE OF DISCHARGE: 02/22/2021 HOSPITAL SUMMARY: A 50-year-old black male who came in with abdominal pain and CT scan showed evidence of pancreatitis with no other findings. Lipase was high at 3400, came down to normal within 2 days. The liver enzymes are mildly elevated around twice normal and mild elevation of alkaline phosphatase was present with maximum value of 147. CA 19-9 is normal. CEA is mildly elevated at 5. Hemoglobin was 11.9 on admission, went down to 9.6 prior to dismissal with iron and TIBC both low. Stool was negative for occult blood and urine with high sugar, otherwise negative. Sonogram of the abdomen showed inflammation of the pancreas and mild ductal dilatation with no gallstones or gallbladder abnormalities or liver abnormalities. He was given IV fluids, IV and oral pain control and bowel rest and his pancreatic pain gradually subsided. Liver enzymes are still mildly elevated and mild anemia was present as he does take aspirin and Plavix for PAD and recent stenting as well as pantoprazole was added. His pain is improved as his diet is back to normal and as his laboratory studies are stable, he is able to be followed as an outpatient. FINAL DIAGNOSES: 1. Acute pancreatitis, possibly drug related secondary to IV Xerava, his antibiotic. 2. Transaminitis, etiology unclear, possible Tylenol, possible statin toxicity. 3. Anemia of chronic disease, rule out occult gastrointestinal bleeding, on aspirin and Plavix. OPERATIONS, PROCEDURES, COMPLICATIONS: None. CONSULTATIONS: Dr. Per Baires, Dr. Caden Boyer. DISPOSITION: He will stay off atorvastatin and Tylenol because of transaminase elevations for now. Continue home meds including metformin for diabetes and we will add pantoprazole for GI protection and follow the anemia and hepatic function profile as an outpatient. Diabetic diet, metformin only for diabetes and IV antibiotics per Dr. Baires with a change in medication, pending, possibly to Invanz. See Dr. Mitchell in 1 week. PROGNOSIS: Good. JO ANN MITCHELL MD DR: SHIRIN/nts JOB#: [id number] / [id number]
--- NOTE | 2021-02-22 14:16 | NUR ---
SW following for discharge planning. Spoke with RN and reviewed chart. Discharge orders are in and pt will discharge home self-care today, 02/22. Spoke with wound care and wound vac is coming off prior to discharge. PICC to be removed. Pt will not discharge on IV abx per ID. Pt does not need HH at this time. Cancelled referral to [facility]. Pt agreeable to out-patient wound care follow up on discharge. Pt up ad aleah walking the unit. Pt on room air and oral medications. No further SW needs at this time.
--- NOTE | 2021-02-22 16:22 | NUR ---
Wound Care Wound Type/Assessment: Follow up prior to discharge for assessment of left plantar great toe. Wound bed is well granulated with minimal areas of slough observed. Wound margins pink and epithelialized with minimal soft callus buildup. Wound is near surface and improving. Wound vac dressing removed. Wound was cleansed and dressing applied. Dressing of Hydrofera Blue + Drawstex and wrapped with Natty. D size medigrip then applied. Treatment Recommendations/Plan: Pt will wear half shoe with all ambulation. NPWT was placed on hold until patient comes to Wound Clinic for further evaluation next week. Most likely the Wound Vac will be discontinued. Education provided: Educated to change position to avoid other skin problem areas, importance of wearing offloading shoe to relieve pressure from wound while walking, and home wound vac and dressing care. Offloading surface/device: Half shoe Recommended Referrals/Tests: Home Health was discontinued at this time post discharge as wound vac no longer in place.
== END 2021-02-22 11:00 | disposition home or self-care (01) | DRG 438 ==
LOC: ER 22:34 → 6 SOUTH 02-17 04:05
PROVIDERS: ADMIT Family Medicine; ATTEND Family Medicine
DX: K85.30 Drug induced acute pancreatitis without necrosis or infection (principal); K57.31 Diverticulosis of large intestine without perforation or abscess with bleeding; E11.52 Type 2 diabetes mellitus with diabetic peripheral angiopathy with gangrene; R79.89 Other specified abnormal findings of blood chemistry; E11.621 Type 2 diabetes mellitus with foot ulcer; R74.01 Elevation of levels of liver transaminase levels; D63.8 Anemia in other chronic diseases classified elsewhere; E78.00 Pure hypercholesterolemia, unspecified; R74.8 Abnormal levels of other serum enzymes; E78.5 Hyperlipidemia, unspecified; I12.9 Hypertensive chronic kidney disease with stage 1 through stage 4 chronic kidney disease, or unspecified chronic kidney disease; N18.9 Chronic kidney disease, unspecified; E11.22 Type 2 diabetes mellitus with diabetic chronic kidney disease; F32.9 Major depressive disorder, single episode, unspecified; G89.29 Other chronic pain; T46.6X5A Adverse effect of antihyperlipidemic and antiarteriosclerotic drugs, initial encounter; T36.4X5A Adverse effect of tetracyclines, initial encounter; K86.89 Other specified diseases of pancreas; L97.529 Non-pressure chronic ulcer of other part of left foot with unspecified severity; D72.829 Elevated white blood cell count, unspecified; K21.9 Gastro-esophageal reflux disease without esophagitis; Z87.891 Personal history of nicotine dependence; Y92.89 Other specified places as the place of occurrence of the external cause
CPT/HCPCS: 36415; 74177; 76705; 80048; 80053; 80061; 80076; 81001; 82274; 82378; 82962; 83540; 83550; 83690; 84478; 85007; 85025; 85027; 86301; 96374; 96375; 96376; C9113; J0360; J1170; J1650; J1815; J2185; J2270; J2405; J3480; J7030; J7042; Q9966; Q9967; 99285-25; G0378

== ENCOUNTER → 2021-12-25 | Outpatient (CLI) | payer BC ==
[~2021-12-25] MED LIST changes: +CYCL10TA19 PO; -CYCL10TA2 PO; +[UNRECOGNIZED DRUG - CODE] IV
--- NOTE | 2021-12-25 15:03 | RAD ---
EXAM: Nuclear gastric emptying scan. HISTORY: Early satiety. Nausea and vomiting. COMPARISON: None. TECHNIQUE: Serial static images were obtained over the stomach following oral administration of 2 mCi 99m-Tc sulfur colloid. FINDINGS: The stomach empties into the small bowel without evidence of reflux in the area of the esop hagus. Gastric retention percents: 1 hour 32% (normal range 34.8-91%) 2 hour 15% (normal range 2.7-60%) 3 hour 9% (normal range 0.5-28%) 4 hour for% (normal range 0-10%) The estimated time for half emptying of gastric contents, i.e. 'gastric emptying time' is 54 minutes (normal is 66 +/- 22 minutes). IMPRESSION: Normal gastric emptying scan. Electronically signed by: Eden Ruvalcaba MD (12/25/2021 3:00 PM) [id number]
== END ==
LOC: NM 09:27
PROVIDERS: ATTEND Internal Medicine
DX: R11.2 Nausea with vomiting, unspecified (principal); K59.00 Constipation, unspecified; K21.9 Gastro-esophageal reflux disease without esophagitis; E11.621 Type 2 diabetes mellitus with foot ulcer; R68.81 Early satiety
CPT/HCPCS: 78264; A9541